=== PATIENT | male | born 1970 | race Caucasian/White ===

== ENCOUNTER 2016-05-19 15:24 | Emergency (ER) | payer BC, MEDICAID ==
[~2016-05-19] VITALS: Ht 170.2 cm; Wt 106.6 kg
[~2016-05-19 15:24] MED LIST: ALBU8.5H3 IH; CALC60OI6 TP; CRESTOR10 MG PO; EPIN0.3A8 IJ; FAMO40TA4 PO; FLUO10TA PO; FLUT16SP2 NS; FURO20TA3 PO; HYDR12.58 PO; HYDR25TA PO; IPRA4AER IH; LISI-338 PO; LORA1TAB PO; METO25TA4 PO; MOME13HF2 IH; MUPI22OI2 TP; NYST1000 PO; OMEG500C3 PO; OMEP40CA5 PO; POTA10TA10 PO; QUET100T4 PO; QUET400T6 PO; QUET50TA5 PO; ROPI1TAB PO; SENN8.6T99 PO; TADA5TAB PO; TEST100V2 IM; TRAM100T PO; TRAM50TA PO
[2016-05-19 15:32] VITALS: BP 116/64
[2016-05-19] MEDS ORDERED: HYDROCODONE/APAP 10/325 TABLET. PO ONE (16:15)
--- NOTE | 2016-06-02 05:51 | ED.ADGEN ---
Past History Past Medical History: Anxiety, Bipolar, CAD, GERD, High Cholesterol, Hypertension Past Surgical History: Appendectomy Smoking: Non-smoker Alcohol Use: None Drug Use: Marijuana Adult General Chief Complaint Chief Complaint electrical burn right index finger HPI HPI Patient went recent surgical repair of right index finger tendon who presents with electrical burn to right index finger. Patient was attempting to reattach a live wire when he felt electrical jolt. Patient with superficial wound to the dorsal aspect of right index finger consistent with electrical burn. No disruption of surgical wound. Sensation intact with no change motor function. Injury occurred just prior to ED arrival. Review of Systems Review of Systems ROS as per HPI. Current Medications Current Medications Current Medications Medications (Trade) Dose Ordered Sig/Miguel A Start Time Stop Time Status Last Admin Dose Admin Acetaminophen/ Hydrocodone Bitart (Lortab 10/325) 1 tab 1X ONCE 05/19/16 16:15 05/19/16 16:17 DC 05/19/16 16:00 1 TAB Allergies Allergies Allergies Coded Allergies Type Severity Reaction Last Updated Verified cinnamon Allergy Severe Anaphylaxis 06/07/13 Yes egg Allergy Severe Anaphylaxis 06/07/13 No latex Allergy Severe Anaphylaxis 06/07/13 Yes Penicillins Adverse Reaction Severe Nausea and Vomiting 06/07/13 No Sulfa (Sulfonamide Antibiotics) Adverse Reaction Severe migraines 06/07/13 Yes codeine Adverse Reaction Severe hyperactive 06/07/13 No Physical Exam Physical Exam Constitutional: Well developed, well nourished, no acute distress, non-toxic appearance. HENT: Normocephalic, atraumatic, bilateral external ears normal, oropharynx moist, no oral exudates, nose normal. Extremities: R index finger, healing surgical scar, superficial wound to dorsum of right distal phalynx systolic electrical burn. Neurologic: Right index finger, sensation intact, limited range of motion. Current Patient Data Vital Signs Vital Signs Date Time Temp Pulse Resp B/P Pulse Ox O2 Delivery O2 Flow Rate FiO2 05/19/16 16:00 12 05/19/16 15:32 98.3 88 96 Room Air EKG EKG [] Radiology/Procedures Radiology/Procedures [] Impressions: electrical burn to to right hand Course & Med Decision Making Course & Med Decision Making Pertinent Labs and Imaging studies reviewed. (See chart for details) [Recommend supportive measures, topical abx and follow up with hand surgeon.] Final Impression Final Impression [1. electrical burn right index finger] Problems: Judy Disclaimer Dragon Disclaimer This electronic medical record was generated, in whole or in part, using a voice recognition dictation system. BREA NEAL DO Jun 02, 2016 05:51
== END 2016-05-19 16:05 | disposition home or self-care (01) ==
LOC: ER 15:24
DX: T23.021A Burn of unspecified degree of single right finger (nail) except thumb, initial encounter (principal); I25.10 Atherosclerotic heart disease of native coronary artery without angina pectoris; I10 Essential (primary) hypertension; E78.00 Pure hypercholesterolemia, unspecified; K21.9 Gastro-esophageal reflux disease without esophagitis; F12.10 Cannabis abuse, uncomplicated; Z88.0 Allergy status to penicillin; Z88.2 Allergy status to sulfonamides; Z88.8 Allergy status to other drugs, medicaments and biological substances; Z88.6 Allergy status to analgesic agent; Z91.012 Allergy to eggs; Z91.040 Latex allergy status; W86.8XXA Exposure to other electric current, initial encounter; Y93.89 Activity, other specified; Y99.8 Other external cause status; Y92.89 Other specified places as the place of occurrence of the external cause
CPT/HCPCS: 16020; 99284-25

== ENCOUNTER 2016-06-28 15:54 | Emergency (ER) | payer BC ==
[2016-06-28] MEDS ORDERED: ACETAMINOPHEN 500 MG TABLET PO ONE (16:45)
[2016-06-28] MEDS ORDERED: CEPHALEXIN 500 MG CAPSULE PO ONE (16:45)
[2016-06-28] MEDS ORDERED: IBUP600T16 PO (16:48)
[2016-06-28] MEDS ORDERED: CEPH-264 PO (16:48)
--- NOTE | 2016-06-28 16:48 | PHYS DOC ---
Past History Past Medical History: Bipolar, CAD, COPD, Diabetes, GERD, Hypertension, [place], TIA , Other Past Surgical History: Appendectomy, Cholecystectomy, Other Smoking: Non-smoker Alcohol Use: None Additional Alcohol Information: no ETOH for 18 years Drug Use: Marijuana Adult General Chief Complaint Chief Complaint: SKIN PROBLEM HPI HPI 45-year-old male who presents with a skin lesion to his right second metatarsal after he states he had significant itching in that area. Patient does have history of diabetic neuropathy and has been itching that toe excessively and now has caused some blister formation and irritation to that area. Patient has skin lesions throughout his body better consistent with pruritic type rash. Patient is on hydroxyzine for itching area. He also believes he has history of psoriasis. He is [id number]. He states he has history of CAD with 4 stents. He denies any recent fever or chills. He is in no acute distress and completely nontoxic in appearance. Pt ambulated into the department without any shoes. Review of Systems Review of Systems Constitutional: Denies fever or chills [] Eyes: Denies change in visual acuity, redness, or eye pain [] HENT: Denies nasal congestion or sore throat [] Respiratory: Denies cough or shortness of breath [] Cardiovascular: No additional information not addressed in HPI [] GI: Denies abdominal pain, nausea, vomiting, bloody stools or diarrhea [] : Denies dysuria or hematuria [] Musculoskeletal: Denies back pain or joint pain [] Integument: Denies rash, has skin lesions [] Neurologic: Denies headache, focal weakness or sensory changes [] Endocrine: Denies polyuria or polydipsia [] Current Medications Current Medications Current Medications Medications (Trade) Dose Ordered Sig/[facility] Start Time Stop Time Status Last Admin Dose Admin Acetaminophen (Tylenol) 1,000 mg 1X ONCE 06/28/16 16:45 06/28/16 16:46 06/28/16 16:33 1,000 MG Cephalexin HCl (Keflex) 500 mg 1X ONCE 06/28/16 16:45 06/28/16 16:46 06/28/16 16:33 500 MG Allergies Allergies Allergies Coded Allergies Type Severity Reaction Last Updated Verified cinnamon Allergy Severe Anaphylaxis 06/07/13 Yes egg Allergy Severe Anaphylaxis 06/07/13 No latex Allergy Severe Anaphylaxis 06/07/13 Yes Penicillins Adverse Reaction Severe Nausea and Vomiting 06/07/13 No Sulfa (Sulfonamide Antibiotics) Adverse Reaction Severe migraines 06/07/13 Yes codeine Adverse Reaction Severe hyperactive 06/07/13 No Physical Exam Physical Exam Constitutional: Well developed, well nourished, no acute distress, non-toxic appearance. [] HENT: Normocephalic, atraumatic, bilateral external ears normal, oropharynx moist, no oral exudates, nose normal. [] Eyes: PERRLA, EOMI, conjunctiva normal, no discharge. [] Neck: Normal range of motion, no tenderness, supple, no stridor. [] Cardiovascular:Heart rate regular rhythm, no murmur [] Lungs & Thorax: Bilateral breath sounds clear to auscultation [] Abdomen: Bowel sounds normal, soft, no tenderness, no masses, no pulsatile masses. [] Skin: Warm, dry, no erythema, no rash. [] Back: No tenderness, no CVA tenderness. [] Extremities: Mild tenderness and an area of blister formation with eschar to the second right metacarpal, there is no obvious cellulitis, there is no fluctuance or purulence noted, no cyanosis, no clubbing, ROM intact, no edema. [ ] Neurologic: Alert and oriented X 3, normal motor function, normal sensory function, no focal deficits noted. [] Psychologic: Affect normal, judgement normal, mood normal. [] Current Patient Data Vital Signs Vital Signs Date Time Temp Pulse Resp B/P Pulse Ox O2 Delivery O2 Flow Rate FiO2 06/28/16 15:54 98.2 80 18 98 Room Air EKG EKG [] Radiology/Procedures Radiology/Procedures [] Course & Med Decision Making Course & Med Decision Making Pertinent Labs and Imaging studies reviewed. (See chart for details) This referral male who has history of diabetes will be given a prescription for Keflex and Tylenol as he has a blistering skin lesion to the right second metatarsal. Counseled him to use topical Benadryl to the area and to avoid itching it at all costs. I also want him to get reevaluated next several days by his primary care doctor and to return if it develops any worsening redness or swelling or pain. Return precautions were provided and acknowledged by the patient. Judy Disclaimer Dragon Disclaimer This chart was dictated in whole or in part using Voice Recognition software in a busy, high-work load, and often noisy Emergency Department environment. It may contain unintended and wholly unrecognized errors or omissions. Departure Departure: Impression: Primary Impression: Skin lesion Disposition: HOME, SELF-CARE Condition: STABLE Referrals: MARIA A MANNING MD (PCP) Patient Instructions: Blisters Additional Instructions: Please take your antibiotic as prescribed. Return to the ER if you develop any worsening of your symptoms. Take tylenol as needed for your pain. Have your wound evaluated in the next 2-3 days. Scripts Cephalexin (Keflex)500 Mg [id number] Mg PO QID 40 Days Prov:CRISTOBAL TOUSSAINT DO 06/28/16 Ibuprofen 600 Mg [id number] Mg PO Q6HRS #20 Prov:CRISTOBAL TOUSSAINT DO 06/28/16 CRISTOBAL TOUSSAINT DO Jun 28, 2016 16:48
[2016-06-28 17:00] VITALS: BP 101/68
== END 2016-06-28 17:00 | disposition home or self-care (01) ==
LOC: ER 15:54
DX: S90.424A Blister (nonthermal), right lesser toe(s), initial encounter (principal); I25.10 Atherosclerotic heart disease of native coronary artery without angina pectoris; I10 Essential (primary) hypertension; F31.9 Bipolar disorder, unspecified; J44.9 Chronic obstructive pulmonary disease, unspecified; E11.9 Type 2 diabetes mellitus without complications; I25.2 Old myocardial infarction; F12.10 Cannabis abuse, uncomplicated; Z86.73 Personal history of transient ischemic attack (TIA), and cerebral infarction without residual deficits; Z91.012 Allergy to eggs; Z91.040 Latex allergy status; Z88.5 Allergy status to narcotic agent; Z88.0 Allergy status to penicillin; Z88.2 Allergy status to sulfonamides; Z91.018 Allergy to other foods; X58.XXXA Exposure to other specified factors, initial encounter; Y93.89 Activity, other specified; Y99.8 Other external cause status; Y92.89 Other specified places as the place of occurrence of the external cause
CPT/HCPCS: 99283

== ENCOUNTER 2016-07-04 19:49 | Emergency (ER) | payer BC ==
[~2016-07-04] VITALS: Ht 170.2 cm; Wt 106.8 kg
[2016-07-04 19:49] VITALS: BP 117/81
[~2016-07-04 19:49] MED LIST changes: +CEPH-264 PO; +IBUP600T16 PO
[2016-07-04 21:16] LABS: BASO % 0 % (0-3); EOS # 0.3 x10^3/uL (0.0-0.7); EOS % 2 % (0-3); HEMATOCRIT 50.9 % (39.0-53.0); HEMOGLOBIN 17.2 g/dL (13.0-17.5); LYMPH # 4.4 x10^3/uL (1.0-4.8); LYMPH % 41 % (24-48); MEAN CORPUSCULAR HEMOGLOBIN 30 pg (25-35); MEAN CORPUSCULAR HGB CONC 34 g/dL (31-37); MEAN CORPUSCULAR VOLUME 89 fL (79-100); MONO # 0.8 x10^3/uL (0.0-1.1); MONO % 7 % (0-9); NEUT # 5.5 x10^3uL (1.8-7.7); NEUT % 50 % (31-73); PLATELET COUNT 359 x10^3/uL (140-400); RED CELL DISTRIBUTION WIDTH 15.4 % (11.5-14.5); WHITE BLOOD COUNT 10.9 x10^3/uL (4.0-11.0)
[2016-07-04 21:27] LABS: C REACTIVE PROTEIN 3.8 mg/L (0-3.3); CALCIUM 8.6 mg/dL (8.5-10.1); GFR 81.2; POTASSIUM 4.1 mmol/L (3.5-5.1)
--- NOTE | 2016-07-04 22:02 | PHYS DOC ---
General Chief Complaint: SKIN PROBLEM Stated Complaint: INFECTION OF FRICTION FULLER Time Seen by MD: 19:52 Source: patient, old records Exam Limitations: no limitations Problems: History of Present Illness Initial Comments Pt is 45/M to ED c/o sores on feet. Pt seen here 06/28 for right 2nd toe "friction blister." Pt rubs his feet together often causing open sores despite being advised against. Pt arrived to ED without shoes. Prescribed cephalexin, pt states not getting better. No fever/chills/malaise/ fatigue. No bump in glucose correlating to infection. Td UTD. Continues to smoke despite being advised to stop. Onset: last week Severity: mild Pain/Injury Location: left foot, right 2nd toe Method of Injury: other Modifying Factors: improves with rest Allergies: Coded Allergies: cinnamon (Verified Allergy, Severe, Anaphylaxis, 06/07/13) egg (Unverified Allergy, Severe, Anaphylaxis, 06/07/13) latex (Verified Allergy, Severe, Anaphylaxis, 06/07/13) Penicillins (Unverified Adverse Reaction, Severe, Nausea and Vomiting, 06/07) Sulfa (Sulfonamide Antibiotics) (Verified Adverse Reaction, Severe, migraines, 06/07/13) codeine (Unverified Adverse Reaction, Severe, hyperactive, 06/07/13) Past Medical History Medical History: other (bipolar, CAD, COPD, DM, GERD, HTN, TIA) Surgical History: other (appy, wade) Family History Significant Family History: no pertinent family hx Social History Smoker: cigarettes Alcohol: sober (x 18 years) Drugs: marijuana Review of Systems Constitutional: denies chills, denies diaphoresis, denies fever, denies malaise Respiratory: denies cough, denies shortness of breath, denies wheezing Cardiovascular: denies chest pain, denies palpitations, denies syncope Gastrointestinal: denies abdominal pain, denies diarrhea, denies nausea, denies vomiting Genitourinary: denies discharge, denies dysuria, denies hematuria Skin: see HPI Psychiatric/Neurological: denies headache, denies weakness Physical Exam General Appearance: no apparent distress (disheveled) Neck: full range of motion, supple Cardiovascular/Respiratory: normal peripheral pulses, no respiratory distress Back: no CVA tenderness, no vertebral tenderness Feet: bilateral foot non-tender, bilateral foot normal range of motion Neurologic/Tendon: normal motor functions, normal tendon functions, responds to pain, no evidence tendon injury, other (decreased sensory b/l feet c/w history) Skin: warm/dry (scabbed small lesions over entire skin surface (pt says house infested with oak mites, bedbugs). Dorsal left 2nd toe scabbed lesion essentially covering dorsal aspect of the digit. Dorsal aspect left foot 1cm x 2cm area of abrasion with 0.5cm halo erythema no induration/purulence/warmth) Orders, Labs, Meds Reassuring labs. I discussed need for outpatient follow up as well as yearly POD visit arranged by PCP. Discussed medication change and smoking cessation. Departure Time of Disposition: 21:58 Disposition: 01 HOME, SELF-CARE Diagnosis: bilateral foot abrasions with diabetic neuropathy Condition: GOOD Patient Instructions: Diabetes and Exercise-SportsMed Additional Instructions: Discontinue cephalexin. Keep wounds clean and dry, cover with sterile dressing. Wash twice daily with soap and warm water, blot dry. Change dressing each wash. Wear diabetic shoes. Rx: cipro, clindamycin Stop smoking, seek medical assistance if necessary. Follow up with your doctor in the next two days for recheck and possible outpatient MRI evaluation.] Return to ED with new or changing symptoms. JOHN BRIGHT DO July 04, 2016 22:02
[2016-07-04] MEDS ORDERED: CLINDAMYCIN HCL 150 MG CAPSULE PO ONE (22:15)
[2016-07-04] MEDS ORDERED: CIPROFLOXACIN HCL 500 MG TABLET PO ONE (22:15)
== END 2016-07-04 22:18 | disposition home or self-care (01) ==
LOC: ER 19:49
DX: S90.812A Abrasion, left foot, initial encounter (principal); S90.811A Abrasion, right foot, initial encounter; E11.40 Type 2 diabetes mellitus with diabetic neuropathy, unspecified; F17.210 Nicotine dependence, cigarettes, uncomplicated; F31.9 Bipolar disorder, unspecified; I25.10 Atherosclerotic heart disease of native coronary artery without angina pectoris; K21.9 Gastro-esophageal reflux disease without esophagitis; J44.9 Chronic obstructive pulmonary disease, unspecified; I10 Essential (primary) hypertension; F12.10 Cannabis abuse, uncomplicated; Z86.73 Personal history of transient ischemic attack (TIA), and cerebral infarction without residual deficits; Z88.5 Allergy status to narcotic agent; Z88.2 Allergy status to sulfonamides; Z88.0 Allergy status to penicillin; Z91.012 Allergy to eggs; Z91.040 Latex allergy status; Z91.018 Allergy to other foods; X58.XXXA Exposure to other specified factors, initial encounter; Y93.89 Activity, other specified; Y92.89 Other specified places as the place of occurrence of the external cause; Y99.8 Other external cause status
CPT/HCPCS: 36415; 80048; 85027; 86140; 87040; 99284

== ENCOUNTER 2016-07-12 00:14 | Emergency (ER) | payer BC ==
[~2016-07-12] VITALS: Ht 170.2 cm; Wt 106.8 kg
[2016-07-12 00:14] VITALS: BP 117/81
[~2016-07-12 00:14] MED LIST changes: -ALBU8.5H3 IH; +ALBU8.5H8 IH
--- NOTE | 2016-07-12 03:07 | ED.ADGEN ---
Past History Past Medical History: Bipolar, CAD, COPD, Diabetes, GERD, Hypertension, [place], TIA , Vascular Disease, Other Past Surgical History: Appendectomy, Cholecystectomy, Other Smoking: Non-smoker Alcohol Use: None Drug Use: Marijuana Adult General Chief Complaint Chief Complaint Dental issue HPI HPI Patient is a 45 year old male who presents with lying stuck in his tooth. Review of Systems Review of Systems Constitutional: Denies fever or chills [] Eyes: Denies change in visual acuity, redness, or eye pain [] HENT: Denies nasal congestion or sore throat [] Respiratory: Denies cough or shortness of breath [] Cardiovascular: No additional information not addressed in HPI [] GI: Denies abdominal pain, nausea, vomiting, bloody stools or diarrhea [] : Denies dysuria or hematuria [] Musculoskeletal: Denies back pain or joint pain [] Integument: Denies rash or skin lesions [] Neurologic: Denies headache, focal weakness or sensory changes [] Endocrine: Denies polyuria or polydipsia [] Allergies Allergies Allergies Coded Allergies Type Severity Reaction Last Updated Verified cinnamon Allergy Severe Anaphylaxis 06/07/13 Yes egg Allergy Severe Anaphylaxis 06/07/13 No latex Allergy Severe Anaphylaxis 06/07/13 Yes Penicillins Adverse Reaction Severe Nausea and Vomiting 06/07/13 No Sulfa (Sulfonamide Antibiotics) Adverse Reaction Severe migraines 06/07/13 Yes codeine Adverse Reaction Severe hyperactive 06/07/13 No Physical Exam Physical Exam Constitutional: Well developed, well nourished, no acute distress, non-toxic appearance. [] HENT: Normocephalic, atraumatic, bilateral external ears normal, oropharynx moist, no oral exudates, nose normal. Tongue ring stud stuck inbetween the seventh and eighth tooth Eyes: PERRLA, EOMI, conjunctiva normal, no discharge. [] Neck: Normal range of motion, no tenderness, supple, no stridor. [] Cardiovascular:Heart rate regular rhythm, no murmur [] Lungs & Thorax: Bilateral breath sounds clear to auscultation [] Abdomen: Bowel sounds normal, soft, no tenderness, no masses, no pulsatile masses. [] Skin: Warm, dry, no erythema, no rash. [] Back: No tenderness, no CVA tenderness. [] Extremities: No tenderness, no cyanosis, no clubbing, ROM intact, no edema. [] Neurologic: Alert and oriented X 3, normal motor function, normal sensory function, no focal deficits noted. [] Psychologic: Affect normal, judgement normal, mood normal. [] EKG EKG [] Radiology/Procedures Radiology/Procedures [] Course & Med Decision Making Course & Med Decision Making Pertinent Labs and Imaging studies reviewed. (See chart for details) I was able to dislodge the tongue ring in his tooth and the patient feels better now. He denies any pain, trouble swallowing or breathing. He is being discharged home with return precautions that if you have troubles breathing or swallowing or other concerns return back to ER. Final Impression Final Impression Tongue ring stuck in tooth Problems: Dragon Disclaimer Dragon Disclaimer This electronic medical record was generated, in whole or in part, using a voice recognition dictation system. ERNIE RODRIGUEZ MD July 12, 2016 03:06
== END 2016-07-12 00:40 | disposition home or self-care (01) ==
LOC: ER 00:14
DX: T18.0XXA Foreign body in mouth, initial encounter (principal); I25.10 Atherosclerotic heart disease of native coronary artery without angina pectoris; E11.9 Type 2 diabetes mellitus without complications; I10 Essential (primary) hypertension; J44.9 Chronic obstructive pulmonary disease, unspecified; K21.9 Gastro-esophageal reflux disease without esophagitis; Z86.73 Personal history of transient ischemic attack (TIA), and cerebral infarction without residual deficits; I25.2 Old myocardial infarction; F12.10 Cannabis abuse, uncomplicated; Z88.5 Allergy status to narcotic agent; Z88.0 Allergy status to penicillin; Z88.2 Allergy status to sulfonamides; Z88.8 Allergy status to other drugs, medicaments and biological substances; Z91.012 Allergy to eggs; Z91.040 Latex allergy status; X58.XXXA Exposure to other specified factors, initial encounter; Y93.89 Activity, other specified; Y99.8 Other external cause status; Y92.89 Other specified places as the place of occurrence of the external cause
CPT/HCPCS: 99284

== ENCOUNTER 2016-09-11 11:05 | Emergency (ER) | payer SELFPAY ==
[~2016-09-11] VITALS: Ht 170.2 cm; Wt 106.8 kg
[2016-09-11 11:16] VITALS: BP 123/80
--- NOTE | 2016-09-11 11:25 | ED.ADGEN ---
Past History Past Medical History: Bipolar, CAD, COPD, Diabetes, GERD, Hypertension, [place], TIA , Vascular Disease, Other Past Surgical History: Appendectomy, Cholecystectomy, Other Smoking: Non-smoker Alcohol Use: None Drug Use: Marijuana Adult General Chief Complaint Chief Complaint Hand trauma HPI HPI Patient is a 46 year old and male who presents with injury. He states he was using a cocking mechanism on his bow when it shattered in the string him in the left hand. He presents with a bruise over his left hand and a small laceration over the lateral aspect of his right hand on the palm surface. He denies any numbness tingling or weakness in his hand. He states his last tetanus shot was 2 years ago. Review of Systems Review of Systems Constitutional: Denies fever or chills [] Eyes: Denies change in visual acuity, redness, or eye pain [] HENT: Denies nasal congestion or sore throat [] Respiratory: Denies cough or shortness of breath [] Cardiovascular: No additional information not addressed in HPI [] GI: Denies abdominal pain, nausea, vomiting, bloody stools or diarrhea [] : Denies dysuria or hematuria [] Musculoskeletal: Denies back pain or joint pain [] Integument: Denies rash or skin lesions [] Neurologic: Denies headache, focal weakness or sensory changes [] Endocrine: Denies polyuria or polydipsia [] Current Medications Current Medications Current Medications Medications (Trade) Dose Ordered Sig/[facility] Start Time Stop Time Status Last Admin Dose Admin Acetaminophen/ Hydrocodone Bitart (Lortab 5/325) 2 tab 1X ONCE 09/11/16 12:30 09/11/16 12:30 DC 09/11/16 12:21 2 TAB Allergies Allergies Allergies Coded Allergies Type Severity Reaction Last Updated Verified cinnamon Allergy Severe Anaphylaxis 06/07/13 Yes egg Allergy Severe Anaphylaxis 06/07/13 No latex Allergy Severe Anaphylaxis 06/07/13 Yes Penicillins Adverse Reaction Severe Nausea and Vomiting 06/07/13 No Sulfa (Sulfonamide Antibiotics) Adverse Reaction Severe migraines 06/07/13 Yes codeine Adverse Reaction Severe hyperactive 06/07/13 No Physical Exam Physical Exam Constitutional: Well developed, well nourished, no acute distress, non-toxic appearance. [] HENT: Normocephalic, atraumatic, bilateral external ears normal, oropharynx moist, no oral exudates, nose normal. [] Eyes: PERRLA, EOMI, conjunctiva normal, no discharge. [] Neck: Normal range of motion, no tenderness, supple, no stridor. [] Cardiovascular:Heart rate regular rhythm, no murmur [] Lungs & Thorax: Bilateral breath sounds clear to auscultation [] Abdomen: Bowel sounds normal, soft, no tenderness, no masses, no pulsatile masses. [] Skin: Warm, dry, no erythema, no rash. [] Back: No tenderness, no CVA tenderness. [] Extremities: Tender to palpation over the palmar aspect of the proximal hand with ecchymosis and of 1-2 cm area over the medial aspect of the palmar surface of the proximal home with a 1 cm small laceration and hematoma over the lateral proximal palmar surface is approximately 5 mm x 1 cm in size, no cyanosis, no clubbing, ROM intact, no edema. Station intact to light touch to radial ulnar and median nerve distributions with motor intact to the same. Able to flex and extend at PIP, DIP joint, able to oppose and abduct and adduct the thumb. Neurologic: Alert and oriented X 3, normal motor function, normal sensory function, no focal deficits noted. [] Psychologic: Affect normal, judgement normal, mood normal. [] Current Patient Data Vital Signs Vital Signs Date Time Temp Pulse Resp B/P (MAP) Pulse Ox O2 Delivery O2 Flow Rate FiO2 09/11/16 12:21 20 98 Room Air 09/11/16 11:16 97.6 77 EKG EKG [] Radiology/Procedures Radiology/Procedures [] Course & Med Decision Making Course & Med Decision Making Pertinent Labs and Imaging studies reviewed. (See chart for details) My reading the x-rays do not show any abnormality's. He is tender to palpation in the snuffbox. We'll put in a thumb spica and have repeat x-rays in 10-14 days. He has a superficial laceration that is not need to be repaired. Triple anabolic on it was applied with gauze. Being discharged with [place] 5/325 one to 2 every 6 hours 20 tabs. He also being offered orthopedic follow-up. Return precautions given. He is agreeable plan and being discharged in stable condition this time. He's also instructed to apply ice to his wound for the next 24 hours for the contusion part. After the splint was applied I personally checked it he has good cap refill and sensation intact. Final Impression Final Impression Thumb pain Hand contusion Problems: Dragon Disclaimer Dragon Disclaimer This electronic medical record was generated, in whole or in part, using a voice recognition dictation system. ERNIE RODRIGUEZ MD Sep 11, 2016 11:24
[2016-09-11] MEDS ORDERED: HYDR-971 PO (12:14)
[2016-09-11] MEDS ORDERED: HYDROcodone/APAP 5/325MG 1 TAB TABLET PO ONE (12:30)
--- NOTE | 2016-09-11 13:02 | RAD ---
Left hand radiograph 09/11/2016 at 1149 hours Indication: Left hand trauma with open wounds around the first metacarpal on palmar surface radiating towards the radius and ulna. Comparison: Left hand radiograph 01/14/2014 Technique: 3 views of the left hand are provided. Findings: There is no acute fracture or dislocation. Mild soft tissue swelling is identified along the palmar aspect of the hand. There is a punctate radiopaque density in the palmar soft tissues of the second digit which appears stable dating back to 01/14/2014. No soft tissue gas or osseous erosion. Impression: No acute fracture or dislocation. Soft tissue swelling along the palmar aspect of the hand. No new radiopaque foreign density.
== END 2016-09-11 12:21 | disposition home or self-care (01) ==
LOC: ER 11:05
DX: S61.412A Laceration without foreign body of left hand, initial encounter (principal); I25.10 Atherosclerotic heart disease of native coronary artery without angina pectoris; E11.9 Type 2 diabetes mellitus without complications; I10 Essential (primary) hypertension; J44.9 Chronic obstructive pulmonary disease, unspecified; K21.9 Gastro-esophageal reflux disease without esophagitis; F12.10 Cannabis abuse, uncomplicated; Z86.73 Personal history of transient ischemic attack (TIA), and cerebral infarction without residual deficits; Z91.012 Allergy to eggs; Z91.040 Latex allergy status; Z88.5 Allergy status to narcotic agent; Z88.0 Allergy status to penicillin; Z88.2 Allergy status to sulfonamides; Z91.018 Allergy to other foods; X58.XXXA Exposure to other specified factors, initial encounter; Y93.89 Activity, other specified; Y99.8 Other external cause status; Y92.89 Other specified places as the place of occurrence of the external cause
CPT/HCPCS: 29125; 73130; 99284-25

== ENCOUNTER 2016-09-18 12:39 | Emergency (ER) | payer SELFPAY ==
[~2016-09-18 12:39] MED LIST changes: +HYDR-971 PO
[2016-09-18] MEDS ORDERED: ONDANSETRON PF 4 MG/2 ML VIAL. IV PRN (13:15)
[2016-09-18] MEDS ORDERED: IV NORMAL SALINE 1,000ML 1,000 ML IV SCH (13:30)
[2016-09-18 13:40] LABS: BASO # 0.1 x10^3/uL (0.0-0.2); BASO % 1 % (0-3); EOS # 0.1 x10^3/uL (0.0-0.7); EOS % 1 % (0-3); HEMATOCRIT 48.1 % (39.0-53.0); HEMOGLOBIN 16.5 g/dL (13.0-17.5); LYMPH # 3.3 x10^3/uL (1.0-4.8); LYMPH % 27 % (24-48); MEAN CORPUSCULAR HEMOGLOBIN 31 pg (25-35); MEAN CORPUSCULAR HGB CONC 34 g/dL (31-37); MEAN CORPUSCULAR VOLUME 90 fL (79-100); MONO # 0.7 x10^3/uL (0.0-1.1); MONO % 6 % (0-9); NEUT # 8.1 x10^3uL (1.8-7.7); NEUT % 66 % (31-73); PLATELET COUNT 374 x10^3/uL (140-400); RED BLOOD COUNT 5.32 x10^6/uL (4.30-5.70); RED CELL DISTRIBUTION WIDTH 14.2 % (11.5-14.5); WHITE BLOOD COUNT 12.4 x10^3/uL (4.0-11.0)
[2016-09-18 13:52] LABS: ALBUMIN 4.1 g/dL (3.4-5.0); ALBUMIN/GLOBULIN RATIO 0.9 (1.0-1.7); CALCIUM 8.9 mg/dL (8.5-10.1); CREATININE 1.2 mg/dL (0.7-1.3); GFR 65.5; POTASSIUM 4.1 mmol/L (3.5-5.1); TOTAL BILIRUBIN 0.7 mg/dL (0.2-1.0); TOTAL PROTEIN 8.5 g/dL (6.4-8.2)
[2016-09-18] MEDS ORDERED: METOCLOPRAMIDE HCL 10 MG/2 ML VIAL. IV ONE (14:30)
[2016-09-18] MEDS ORDERED: ONDA4TAB10 SL (15:59)
--- NOTE | 2016-09-18 16:00 | PHYS DOC ---
Past History Past Medical History: Bipolar, CAD, COPD, Depression, Diabetes, GERD, High Cholesterol, Hypertension, MD, P.U.D, TIA, Vascular Disease, Other Past Surgical History: Appendectomy, Cholecystectomy, Other Smoking: Non-smoker Alcohol Use: Occasionally Additional Alcohol Information: history of ETOH abuse Drug Use: Marijuana Adult General Chief Complaint Chief Complaint: ABDOMINAL PAIN HPI HPI Patient is a 46 year old M who presents with nausea/vomiting and abdominal pain. States this is a dull epigastric pain that is worse with eating and improved when he is not eating. He also notes moderate watery diarrhea. He was discharged from [place] on September 10 and seen again in the emergency room on September 16 for the same issue. He was diagnosed with [place]'s disease during his admission and has been taking the oral steroids prescribed to him at that time. He has not been taking the Reglan that was prescribed for his recently diagnosed gastroparesis due to cost and interactions with his psychiatric medications. He has since discontinued one of his psychiatric medications per pharmacy recommendation in order to fill the Reglan. He does not have any other associated symptoms or concerns at this time Review of Systems Review of Systems Constitutional: Denies fever or chills [] Eyes: Denies change in visual acuity, redness, or eye pain [] HENT: Denies nasal congestion or sore throat [] Respiratory: Denies cough or shortness of breath [] Cardiovascular: No additional information not addressed in HPI [] GI: Neg except for HPI : Denies dysuria or hematuria [] Musculoskeletal: Denies back pain or joint pain [] Integument: Denies rash or skin lesions [] Neurologic: Denies headache, focal weakness or sensory changes [] Endocrine: Denies polyuria or polydipsia [] Family History Family History reviewed Current Medications Current Medications Current Medications Medications (Trade) Dose Ordered Sig/Miguel A Start Time Stop Time Status Last Admin Dose Admin Metoclopramide HCl (Reglan) 5 mg 1X ONCE 09/18/16 14:30 09/18/16 14:31 DC 09/18/16 14:12 5 MG Ondansetron HCl (Zofran) 4 mg PRN Q6HRS PRN 09/18/16 13:15 09/18/16 13:40 4 MG Sodium Chloride 1,000 ml @ 1,000 mls/hr Q1H 09/18/16 13:30 09/18/16 14:29 DC 09/18/16 13:40 1,000 MLS/HR Allergies Allergies Coded Allergies Type Severity Reaction Last Updated Verified cinnamon Allergy Severe Anaphylaxis 06/07/13 Yes egg Allergy Severe Anaphylaxis 06/07/13 No latex Allergy Severe Anaphylaxis 06/07/13 Yes Penicillins Adverse Reaction Severe Nausea and Vomiting 06/07/13 No Sulfa (Sulfonamide Antibiotics) Adverse Reaction Severe migraines 06/07/13 Yes codeine Adverse Reaction Severe hyperactive 06/07/13 No Physical Exam Physical Exam Constitutional: Well developed, well nourished, no acute distress, non-toxic appearance. [] HENT: Normocephalic, atraumatic, bilateral external ears normal, oropharynx moist, no oral exudates, nose normal. [] Eyes: PERRLA, EOMI, conjunctiva normal, no discharge. [] Neck: Normal range of motion, no tenderness, supple, no stridor. [] Cardiovascular:Heart rate regular rhythm, no murmur [] Lungs & Thorax: Bilateral breath sounds clear to auscultation [] Abdomen: Bowel sounds normal, soft, no masses, no pulsatile masses. Mild defuse TTP, worse of the epigastric region Skin: Warm, dry, no erythema, no rash. [] Back: No tenderness, no CVA tenderness. [] Extremities: No tenderness, no cyanosis, no clubbing, ROM intact, no edema. [] Neurologic: Alert and oriented X 3, normal motor function, normal sensory function, no focal deficits noted. [] Psychologic: Affect normal, judgement normal, mood normal. [] Current Patient Data Vital Signs Vital Signs Date Time Temp Pulse Resp B/P (MAP) Pulse Ox O2 Delivery O2 Flow Rate FiO2 09/18/16 14:13 76 18 98 Room Air 09/18/16 12:39 98.4 Lab Results Laboratory Tests Test 09/18/16 13:27 White Blood Count 12.4 x10^3/uL (4.0-11.0) H Red Blood Count 5.32 x10^6/uL (4.30-5.70) Hemoglobin 16.5 g/dL (13.0-17.5) Hematocrit 48.1 % (39.0-53.0) Mean Corpuscular Volume 90 fL (79-100) Mean Corpuscular Hemoglobin 31 pg (25-35) Mean Corpuscular Hemoglobin Concent 34 g/dL (31-37) Red Cell Distribution Width 14.2 % (11.5-14.5) Platelet Count 374 x10^3/uL (140-400) Neutrophils (%) (Auto) 66 % (31-73) Lymphocytes (%) (Auto) 27 % (24-48) Monocytes (%) (Auto) 6 % (0-9) Eosinophils (%) (Auto) 1 % (0-3) Basophils (%) (Auto) 1 % (0-3) Neutrophils # (Auto) 8.1 x10^3uL (1.8-7.7) H Lymphocytes # (Auto) 3.3 x10^3/uL (1.0-4.8) Monocytes # (Auto) 0.7 x10^3/uL (0.0-1.1) Eosinophils # (Auto) 0.1 x10^3/uL (0.0-0.7) Basophils # (Auto) 0.1 x10^3/uL (0.0-0.2) Sodium Level 138 mmol/L (136-145) Potassium Level 4.1 mmol/L (3.5-5.1) Chloride Level 100 mmol/L (98-107) Carbon Dioxide Level 29 mmol/L (21-32) Anion Gap 9 (6-14) Blood Urea Nitrogen 10 mg/dL (8-26) Creatinine 1.2 mg/dL (0.7-1.3) Estimated GFR (Cockcroft-Gault) 65.5 BUN/Creatinine Ratio 8 (6-20) Glucose Level 105 mg/dL (70-99) H Calcium Level 8.9 mg/dL (8.5-10.1) Total Bilirubin 0.7 mg/dL (0.2-1.0) Aspartate Amino Transferase (AST) 37 U/L (15-37) Alanine Aminotransferase (ALT) 56 U/L (16-63) Alkaline Phosphatase 155 U/L (46-116) H Total Protein 8.5 g/dL (6.4-8.2) H Albumin 4.1 g/dL (3.4-5.0) Albumin/Globulin Ratio 0.9 (1.0-1.7) L Lipase 113 U/L (73-393) Course & Med Decision Making Course & Med Decision Making Pertinent Labs and Imaging studies reviewed. (See chart for details) K[facility] was reviewed and he was found to have 15 different prescribers. He did not vomit in the ED and was found to have normal labs. He declined imaging at this time. Dragon Disclaimer Dragon Disclaimer This chart was dictated in whole or in part using Voice Recognition software in a busy, high-work load, and often noisy Emergency Department environment. It may contain unintended and wholly unrecognized errors or omissions. Departure Departure: Impression: Primary Impression: Gastroenteritis Disposition: HOME, SELF-CARE Condition: STABLE Referrals: [facility] (PCP) Patient Instructions: Viral Gastroenteritis Additional Instructions: Juan was seen in the ED for abdominal pain with vomiting. No emergency medical condition was found during the history and physical exam. He did have normal labs. He did receive IV fluids and was given a script for Zofran. He was advised to follow up with his primary care doctor as soon as possible for further evaluation Scripts Ondansetron (ZOFRAN ODT) 4 Mg Tab.rapdis 1 TAB SL Q8HRS, #10 TAB Prov: LUZ MARINA TYSON MD 09/18/16 LUZ MARINA TYSON MD Sep 18, 2016 16:00
[2016-09-18 16:05] VITALS: BP 131/66
== END 2016-09-18 16:05 | disposition home or self-care (01) ==
LOC: ER 12:39
DX: K52.9 Noninfective gastroenteritis and colitis, unspecified (principal); E11.9 Type 2 diabetes mellitus without complications; E78.00 Pure hypercholesterolemia, unspecified; I25.10 Atherosclerotic heart disease of native coronary artery without angina pectoris; I10 Essential (primary) hypertension; J44.9 Chronic obstructive pulmonary disease, unspecified; K21.9 Gastro-esophageal reflux disease without esophagitis; Z86.73 Personal history of transient ischemic attack (TIA), and cerebral infarction without residual deficits; I25.2 Old myocardial infarction; Z87.11 Personal history of peptic ulcer disease; F10.10 Alcohol abuse, uncomplicated; F12.10 Cannabis abuse, uncomplicated; Z91.012 Allergy to eggs; Z91.040 Latex allergy status; Z88.5 Allergy status to narcotic agent; Z88.0 Allergy status to penicillin; Z88.2 Allergy status to sulfonamides; Z91.018 Allergy to other foods
CPT/HCPCS: 36415; 80053; 83690; 85027; 96361; 96374; 96375; 99285; J2405; J2765; J7030

== ENCOUNTER 2017-01-01 19:05 | Inpatient (IN) | payer SELFPAY ==
[~2017-01-01] VITALS: Ht 170.2 cm; Wt 96.9 kg
[~2017-01-01 19:05] MED LIST changes: +ONDA4TAB10 SL
[2017-01-01] MEDS ORDERED: NITROGLYCERIN SUBLINGUAL 0.4 MG BOTTLE OF 25. SL PRN ×2 (19:15→23:00)
--- NOTE | 2017-01-01 19:39 | EKG ---
[address] [address] Test Date: 2017-01-01 Test Time: 19:16:20 Pat Name: HEATHER REESE Department: Room: Gender: M [employer]: SHELLY : 1970 Requested By: NAVARRO LAI Order Number: [id number] Reading MD: Bruno Henriquez MD Measurements Intervals [place] Rate: 105 P: 5 AK: 158 QRS: 64 QRSD: 82 T: 20 QT: 318 QTc: 424 Interpretive Statements SINUS TACHYCARDIA Electronically Signed On 01-05-2017 13:32:29 CDT by Bruno Henriquez MD
[2017-01-01 20:05] LABS: BASO # 0.1 x10^3/uL (0.0-0.2); BASO % 1 % (0-3); EOS # 0.1 x10^3/uL (0.0-0.7); EOS % 1 % (0-3); HEMATOCRIT 50.6 % (39.0-53.0); HEMOGLOBIN 17.8 g/dL (13.0-17.5); LYMPH # 3.8 x10^3/uL (1.0-4.8); LYMPH % 28 % (24-48); MEAN CORPUSCULAR HEMOGLOBIN 32 pg (25-35); MEAN CORPUSCULAR HGB CONC 35 g/dL (31-37); MEAN CORPUSCULAR VOLUME 92 fL (79-100); MONO # 0.8 x10^3/uL (0.0-1.1); MONO % 6 % (0-9); NEUT # 8.9 x10^3uL (1.8-7.7); NEUT % 65 % (31-73); PLATELET COUNT 309 x10^3/uL (140-400); RED BLOOD COUNT 5.53 x10^6/uL (4.30-5.70); RED CELL DISTRIBUTION WIDTH 13.4 % (11.5-14.5); WHITE BLOOD COUNT 13.8 x10^3/uL (4.0-11.0)
[2017-01-01 20:21] LABS: ALBUMIN 3.7 g/dL (3.4-5.0); CALCIUM 8.9 mg/dL (8.5-10.1); GFR 80.8; TOTAL BILIRUBIN 0.5 mg/dL (0.2-1.0); TOTAL PROTEIN 7.5 g/dL (6.4-8.2)
[2017-01-01 20:30] LABS: POTASSIUM 3.1 mmol/L (3.5-5.1)
[2017-01-01] MEDS ORDERED: POTASSIUM CHLORIDE 20 MEQ/15 ML ORAL LIQUID. PO ONE (20:45)
--- NOTE | 2017-01-01 20:52 | ED.ADGEN ---
Past History Past Medical History: CAD, Other Past Surgical History: Other Smoking: Non-smoker Alcohol Use: None Drug Use: None Adult General HPI HPI Patient is a 46-year-old man, history of CAD status post stent placement, [place] disease, who states he's been noncompliant with his cardiac medications for between one to 6 months, although he has been taking his steroids for his [place] disease without issue, who presents emergency Department with complaint of chest pain, shortness of breath, that began around 5:00 this afternoon. Patient states that he initially that this is due to his asthma disease, he states that he's had previous episodes of flares from his gastroparesis, however the pain was more persistent and in his upper left chest as well, prompting him to call EMS. Patient received aspirin and nitroglycerin from EMS, and upon arrival to the emergency department states that his pain is almost fully resolved. He denies any recent travel or surgery, states that he has mild swelling extremities that is unchanged from usual, denies any fevers complains of occasional chills, denies any focal weakness, numbness, tingling, headache, states he does have 2 episodes of nausea and vomiting today, food and fluid, and one episode of loose brown stool. He states he did have [facility], did not take up extremity . He is supposed to be on anticoagulants , but has not been taking it for some time due to running out. He states that he did not have medications refilled because he cannot afford his medications. His internet merchant is Dr. Block. Review of Systems Review of Systems Constitutional: Denies fever or chills [] Eyes: Denies change in visual acuity, redness, or eye pain [] HENT: Denies nasal congestion or sore throat [] Respiratory: Denies cough or shortness of breath [] Cardiovascular: No additional information not addressed in HPI [] GI: Denies abdominal pain, nausea, vomiting, bloody stools or diarrhea [] : Denies dysuria or hematuria [] Musculoskeletal: Denies back pain or joint pain [] Integument: Denies rash or skin lesions [] Neurologic: Denies headache, focal weakness or sensory changes [] Endocrine: Denies polyuria or polydipsia [] Current Medications Current Medications Current Medications Medications (Trade) Dose Ordered Sig/Miguel A Start Time Stop Time Status Last Admin Dose Admin Acetaminophen (Tylenol) 650 mg PRN Q4HRS PRN 01/01/17 23:00 01/02/17 22:59 Fentanyl Citrate (Fentanyl 2ml Vial) 100 mcg STK-MED ONCE 01/01/17 21:27 01/01/17 21:28 DC Nitroglycerin (Nitrostat) 0.4 mg PRN Q5MIN PRN 01/01/17 23:00 01/02/17 22:59 Ondansetron HCl (Zofran) 4 mg PRN Q4HRS PRN 01/01/17 23:00 01/02/17 22:59 Potassium Chloride (KCl Oral Soln) 20 meq STK-MED ONCE 01/01/17 21:29 01/01/17 21:30 DC Allergies Allergies Allergies Coded Allergies Type Severity Reaction Last Updated Verified cinnamon Allergy Severe Anaphylaxis 06/07/13 Yes egg Allergy Severe Anaphylaxis 06/07/13 No latex Allergy Severe Anaphylaxis 06/07/13 Yes Penicillins Adverse Reaction Severe Nausea and Vomiting 06/07/13 No Sulfa (Sulfonamide Antibiotics) Adverse Reaction Severe migraines 06/07/13 Yes codeine Adverse Reaction Severe hyperactive 06/07/13 No Physical Exam Physical Exam Constitutional: Well developed, well nourished, no acute distress, non-toxic appearance. [] HENT: Normocephalic, atraumatic, bilateral external ears normal, oropharynx moist, no oral exudates, nose normal. [] Eyes: PERRLA, EOMI, conjunctiva normal, no discharge. [] Neck: Normal range of motion, no tenderness, supple, no stridor. [] Cardiovascular:Heart rate regular rhythm, no murmur [] Lungs & Thorax: Bilateral breath sounds clear to auscultation [] Abdomen: Bowel sounds normal, soft, no tenderness, no masses, no pulsatile masses. [] Skin: Warm, dry, no erythema, no rash. [] Back: No tenderness, no CVA tenderness. [] Extremities: No tenderness, no cyanosis, no clubbing, ROM intact, no edema. [] Neurologic: Alert and oriented X 3, normal motor function, normal sensory function, no focal deficits noted. [] Psychologic: Affect normal, judgement normal, mood normal. [] Current Patient Data Vital Signs Vital Signs Date Time Temp Pulse Resp B/P (MAP) Pulse Ox O2 Delivery O2 Flow Rate FiO2 01/01/17 21:40 20 97 Room Air 01/01/17 19:16 98.5 110 Lab Results Laboratory Tests Test 01/01/17 19:45 White Blood Count 13.8 x10^3/uL (4.0-11.0) H Red Blood Count 5.53 x10^6/uL (4.30-5.70) Hemoglobin 17.8 g/dL (13.0-17.5) H Hematocrit 50.6 % (39.0-53.0) Mean Corpuscular Volume 92 fL (79-100) Mean Corpuscular Hemoglobin 32 pg (25-35) Mean Corpuscular Hemoglobin Concent 35 g/dL (31-37) Red Cell Distribution Width 13.4 % (11.5-14.5) Platelet Count 309 x10^3/uL (140-400) Neutrophils (%) (Auto) 65 % (31-73) Lymphocytes (%) (Auto) 28 % (24-48) Monocytes (%) (Auto) 6 % (0-9) Eosinophils (%) (Auto) 1 % (0-3) Basophils (%) (Auto) 1 % (0-3) Neutrophils # (Auto) 8.9 x10^3uL (1.8-7.7) H Lymphocytes # (Auto) 3.8 x10^3/uL (1.0-4.8) Monocytes # (Auto) 0.8 x10^3/uL (0.0-1.1) Eosinophils # (Auto) 0.1 x10^3/uL (0.0-0.7) Basophils # (Auto) 0.1 x10^3/uL (0.0-0.2) Sodium Level 135 mmol/L (136-145) L Potassium Level 3.1 mmol/L (3.5-5.1) L Chloride Level 100 mmol/L (98-107) Carbon Dioxide Level 26 mmol/L (21-32) Anion Gap 9 (6-14) Blood Urea Nitrogen 14 mg/dL (8-26) Creatinine 1.0 mg/dL (0.7-1.3) Estimated GFR (Cockcroft-Gault) 80.8 BUN/Creatinine Ratio 14 (6-20) Glucose Level 113 mg/dL (70-99) H Calcium Level 8.9 mg/dL (8.5-10.1) Magnesium Level 2.4 mg/dL (1.8-2.4) Total Bilirubin 0.5 mg/dL (0.2-1.0) Aspartate Amino Transferase (AST) 30 U/L (15-37) Alanine Aminotransferase (ALT) 67 U/L (16-63) H Alkaline Phosphatase 154 U/L (46-116) H Troponin I Quantitative < 0.017 ng/mL (0-0.055) EH-Dtm-H-Type Natriuretic Peptide 20 pg/mL (0-124) Total Protein 7.5 g/dL (6.4-8.2) Albumin 3.7 g/dL (3.4-5.0) Albumin/Globulin Ratio 1.0 (1.0-1.7) Lipase 200 U/L (73-393) EKG EKG EC: Sinus tachycardia, heart rate 105 beats/minute, contour abnormality is noted in the anterior lateral leads, QTc of 424, FL 158, QRS of 82, no ST elevations or depressions, abnormal ECG, does not meet STEMI criteria. As interpreted by me. Radiology/Procedures Radiology/Procedures Chest x-ray: One view: Normal cardiopulmonary silhouette, patient is slightly rotated, no infiltrates, no effusions, pneumothorax, no soft tissue or bony abnormalities identified. As interpreted by me.[] Course & Med Decision Making Course & Med Decision Making Pertinent Labs and Imaging studies reviewed. (See chart for details) Patient resting comfortably after receiving aspirin and nitroglycerin en route to the ED. Laboratory studies obtained, troponin within normal limits, ECG reveals mild tachycardia, no evidence of acute ischemia. Chest x-rays unremarkable. Patient noted to have hypokalemia with potassium of 3.1, was repleted orally in the ED. No other concerning abnormalities identified. Patient 's blood pressure within normal limits, heart rate is now in the 80s and 90s.I did discuss findings as above with Dr. Block, the patient's internet merchant, including the patient's medical noncompliance, he requests the patient be admitted to [facility] for serial enzymes continued monitoring, states he will follow the patient in the morning. No indications for catheterization or other interventions at this time. I did discuss this with patient, he is agreeable plan for admission to [facility] for serial laboratory studies, monitoring, and cardiology evaluation. He continues to rest comfortably at this time. No further emesis, patient has injured Nitropaste on his chest. I did discuss findings as above with Dr. Nicole, hospitalist on-call, patient was accepted to her service as a full admission to the medical telemetry floor with cardiology consultation as stated, bridge orders entered per discussion. Patient remained stable, comfortable in the emergency department, awaiting transfer to the floor. Final Impression Final Impression [] Problems: Dragon Disclaimer Dragon Disclaimer This electronic medical record was generated, in whole or in part, using a voice recognition dictation system. Departure: Impression: Primary Impression: Chest pain Disposition: ADMITTED INPATIENT Condition: IMPROVED NAVARRO LAI DO Jan 01, 2017 20:52
[2017-01-01] MEDS ORDERED: POTASSIUM CHLORIDE 20 MEQ/15 ML ORAL LIQUID. ONE (21:29)
[2017-01-01] MEDS ORDERED: ONDANSETRON PF 4 MG/2 ML VIAL. IV PRN (23:00)
[2017-01-01] MEDS ORDERED: ACETAMINOPHEN 325 MG TABLET PO PRN (23:00)
[2017-01-02] MEDS ORDERED: HYDR20TA PO ×2 (01:33→14:24)
[2017-01-02] MEDS ORDERED: METO10TA81 PO ×2 (01:33→14:24)
[2017-01-02 04:18] LABS: BASO # 0.1 x10^3/uL (0.0-0.2); BASO % 1 % (0-3); EOS # 0.2 x10^3/uL (0.0-0.7); EOS % 2 % (0-3); HEMATOCRIT 48.6 % (39.0-53.0); LYMPH # 5.3 x10^3/uL (1.0-4.8); LYMPH % 50 % (24-48); MEAN CORPUSCULAR HEMOGLOBIN 33 pg (25-35); MEAN CORPUSCULAR HGB CONC 35 g/dL (31-37); MEAN CORPUSCULAR VOLUME 93 fL (79-100); MONO # 0.8 x10^3/uL (0.0-1.1); MONO % 8 % (0-9); NEUT # 4.2 x10^3uL (1.8-7.7); NEUT % 39 % (31-73); PLATELET COUNT 285 x10^3/uL (140-400); RED BLOOD COUNT 5.23 x10^6/uL (4.30-5.70); WHITE BLOOD COUNT 10.6 x10^3/uL (4.0-11.0)
[2017-01-02 04:21] LABS: CALCIUM 8.6 mg/dL (8.5-10.1); CREATININE 1.2 mg/dL (0.7-1.3); GFR 65.5; POTASSIUM 3.9 mmol/L (3.5-5.1)
[2017-01-02] MEDS ORDERED: NICOTINE 21MG PATCH. TD PRN (04:30)
[2017-01-02 05:47] VITALS: BP 95/59
[2017-01-02] MEDS ORDERED: ALBUTEROL SULFATE 8GM INHALER. IH PRN (07:30)
[2017-01-02] MEDS ORDERED: LORazepam 1 MG TABLET PO PRN (07:30)
--- NOTE | 2017-01-02 08:24 | RAD ---
Single view of the Chest 01/01/2017 9:08 PM Indication: Chest pain Comparison: Chest radiograph March 20, 2013 Findings: There is no focal consolidation or infiltrate identified. There is no effusion or pneumothorax. The cardiomediastinal silhouette and pulmonary vasculature are within normal limits. No osseous abnormality is identified. Impression: No evidence of acute cardiopulmonary process.
[2017-01-02] MEDS ORDERED: ALBUTEROL SULFATE 2.5 MG/3 ML NEBU. NEB PRN (08:45)
[2017-01-02] MEDS ORDERED: hydrOXYzine HCL 25 MG TABLET ONE (08:58)
[2017-01-02] MEDS ORDERED: OMEGA-3 FATTY ACIDS/FISH OIL 1,000 MG CAPSULE. PO SCH (09:00)
[2017-01-02] MEDS ORDERED: HYDROCORTISONE 20 MG TABLET. PO SCH (09:00)
[2017-01-02] MEDS ORDERED: hydrOXYzine HCL 25 MG TABLET PO SCH (09:00)
[2017-01-02] MEDS ORDERED: FLUoxetine HCL 20 MG CAPSULE PO SCH (09:00)
[2017-01-02] MEDS ORDERED: METOPROLOL TART IMMED RELEASE 25 MG TABLET PO SCH (09:00)
[2017-01-02] MEDS ORDERED: MOMETASONE IH SCH (09:00)
[2017-01-02] MEDS ORDERED: FORMOTEROL IH SCH (09:00)
[2017-01-02] MEDS ORDERED: FLUTICASONE 50MCG/NASAL SPRAY 16GM BOTTLE. NS SCH (09:00)
[2017-01-02] MEDS ORDERED: traMADol 50 MG TABLET PO SCH (09:00)
[2017-01-02] MEDS ORDERED: POTASSIUM CHLORIDE 10 MEQ TABLET.ER. PO SCH (09:00)
[2017-01-02] MEDS ORDERED: NON FORMULARY ITEM (Ipratropium/Albuterol Sulfate (Combivent Respimat Inhal) 4 GM) IH SCH (09:00)
[2017-01-02] MEDS ORDERED: BUDESONIDE 0.5 MG/2 ML NEBU NEB SCH (09:00)
[2017-01-02] MEDS ORDERED: FAMOTIDINE 20 MG TABLET PO SCH (09:00)
[2017-01-02] MEDS ORDERED: SENNOSIDES 8.6 MG TABLET PO SCH (09:00)
[2017-01-02] MEDS ORDERED: rOPINIRole 1 MG TABLET. PO SCH (09:00)
[2017-01-02] MEDS ORDERED: METOCLOPRAMIDE 10 MG TABLET PO SCH (09:00)
[2017-01-02] MEDS ORDERED: METOPROLOL SUCC 24HR ER 25 MG TAB.ER.24H. PO ONE (09:02)
[2017-01-02] MEDS ORDERED: FAMOTIDINE 20 MG TABLET ONE (09:02)
[2017-01-02] MEDS ORDERED: POTASSIUM CHLORIDE 10 MEQ TABLET.ER. PO ONE (09:03)
[2017-01-02] MEDS ORDERED: FLUoxetine HCL 20 MG CAPSULE ONE (09:03)
[2017-01-02] MEDS ORDERED: rOPINIRole 0.5 MG TABLET. ONE (09:03)
[2017-01-02] MEDS ORDERED: SENNOSIDES 8.6 MG TABLET ONE (09:03)
[2017-01-02] MEDS ORDERED: METOCLOPRAMIDE 10 MG TABLET ONE (09:03)
[2017-01-02] MEDS ORDERED: OMEGA-3 FATTY ACIDS/FISH OIL 1,000 MG CAPSULE. PO ONE (09:03)
[2017-01-02] MEDS ORDERED: traMADol 50 MG TABLET ONE (09:04)
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
[2017-01-02] MEDS ORDERED: ASPIRIN 81 MG TAB.CHEW ONE (09:18)
[2017-01-02] MEDS ORDERED: ASPIRIN ENTERIC COATED 81 MG TABLET.DR. PO SCH (09:30)
[2017-01-02] MEDS ORDERED: KETOROLAC 15 MG/ML VIAL. IV PRN (09:30)
[2017-01-02] MEDS ORDERED: CLOPIDOGREL BISULFATE 75 MG TABLET PO SCH (09:45)
[2017-01-02 10:52] VITALS: BP 111/78
[2017-01-02] MEDS ORDERED: ALBUTEROL SULFATE 2.5 MG/3 ML NEBU. ONE (10:58)
[2017-01-02] MEDS ORDERED: BUDESONIDE 0.5 MG/2 ML NEBU ONE (10:58)
[2017-01-02] MEDS ORDERED: IBUPROFEN 600 MG TABLET. PO PRN (11:30)
[2017-01-02] MEDS ORDERED: ALBUTEROL SULFATE 2.5 MG/3 ML NEBU. NEB SCH (12:00)
[2017-01-02] MEDS ORDERED: IBUPROFEN 600 MG TABLET. PO SCH (12:00)
[2017-01-02] MEDS ORDERED: KETOROLAC 15 MG/ML VIAL. ONE (12:17)
[2017-01-02] MEDS ORDERED: FLUO10TA PO (14:24)
[2017-01-02] MEDS ORDERED: SIMV20TA3 PO (14:24)
[2017-01-02] MEDS ORDERED: METO25TA4 PO (14:24)
[2017-01-02 15:24] VITALS: BP 112/73
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
[2017-01-02] MEDS ORDERED: ATORVASTATIN CALCIUM 20 MG TABLET PO SCH (21:00)
== END 2017-01-02 16:13 | disposition home or self-care (01) | DRG 313 ==
LOC: ER 19:05 → 1 SOUTH 22:30
PROVIDERS: ADMIT Family Medicine; ATTEND Family Medicine
DX: R07.9 Chest pain, unspecified (principal); I25.10 Atherosclerotic heart disease of native coronary artery without angina pectoris; E27.1 Primary adrenocortical insufficiency; E78.5 Hyperlipidemia, unspecified; F12.90 Cannabis use, unspecified, uncomplicated; F17.210 Nicotine dependence, cigarettes, uncomplicated; F43.10 Post-traumatic stress disorder, unspecified; I10 Essential (primary) hypertension; J44.9 Chronic obstructive pulmonary disease, unspecified; K21.9 Gastro-esophageal reflux disease without esophagitis; E11.9 Type 2 diabetes mellitus without complications; K58.9 Irritable bowel syndrome, unspecified; F31.9 Bipolar disorder, unspecified; M79.7 Fibromyalgia; F19.10 Other psychoactive substance abuse, uncomplicated; M19.90 Unspecified osteoarthritis, unspecified site; F41.9 Anxiety disorder, unspecified; Z88.0 Allergy status to penicillin; Z88.2 Allergy status to sulfonamides; Z88.8 Allergy status to other drugs, medicaments and biological substances; Z88.6 Allergy status to analgesic agent; Z91.012 Allergy to eggs; Z91.040 Latex allergy status; Z59.0 Homelessness; Z79.02 Long term (current) use of antithrombotics/antiplatelets; Z79.82 Long term (current) use of aspirin; Z82.49 Family history of ischemic heart disease and other diseases of the circulatory system; Z91.19 Patient's noncompliance with other medical treatment and regimen; Z95.5 Presence of coronary angioplasty implant and graft; Z79.4 Long term (current) use of insulin; Z71.6 Tobacco abuse counseling
CPT/HCPCS: 36415; 71010; 80048; 80053; 83690; 83735; 83880; 84484; 85025; 93005; 94640; 99406; J1885; J3010; J7613; J7626; 99285-25

== ENCOUNTER 2017-01-03 23:12 | Emergency (ER) | payer SELFPAY ==
[~2017-01-03] VITALS: Ht 170.2 cm; Wt 110.4 kg
[~2017-01-03 23:12] MED LIST changes: +HYDR20TA PO; +METO10TA81 PO; +SIMV20TA3 PO
[2017-01-04] MEDS ORDERED: KETOROLAC 30 MG/ML VIAL. IV ONE
[2017-01-04] MEDS ORDERED: MORPHINE SULFATE 4 MG/ML DISP.SYRIN. IV/SQ PRN
[2017-01-04] MEDS ORDERED: ONDANSETRON PF 4 MG/2 ML VIAL. IV ONE
--- NOTE | 2017-01-04 | EKG ---
[address] [address] Test Date: 2017-01-03 Test Time: 23:51:41 Pat Name: HEATHER REESE Department: Room: Gender: M Keyliner: : 1970 Requested By: JOHN BRIGHT Order Number: [id number] Reading MD: Bruno Henriquez MD Measurements Intervals Etta Rate: 84 P: 29 NC: 152 QRS: 51 QRSD: 80 T: 28 QT: 354 QTc: 421 Interpretive Statements SINUS RHYTHM Electronically Signed On 01-05-2017 13:52:41 CDT by Bruno Henriquez MD
[2017-01-04 01:21] LABS: BASO # 0.1 x10^3/uL (0.0-0.2); BASO % 1 % (0-3); EOS # 0.1 x10^3/uL (0.0-0.7); EOS % 1 % (0-3); HEMATOCRIT 48.3 % (39.0-53.0); HEMOGLOBIN 16.9 g/dL (13.0-17.5); LYMPH # 3.8 x10^3/uL (1.0-4.8); LYMPH % 30 % (24-48); MEAN CORPUSCULAR HEMOGLOBIN 32 pg (25-35); MEAN CORPUSCULAR HGB CONC 35 g/dL (31-37); MEAN CORPUSCULAR VOLUME 92 fL (79-100); MONO # 0.7 x10^3/uL (0.0-1.1); MONO % 6 % (0-9); NEUT # 7.8 x10^3uL (1.8-7.7); NEUT % 62 % (31-73); PLATELET COUNT 291 x10^3/uL (140-400); RED BLOOD COUNT 5.23 x10^6/uL (4.30-5.70); RED CELL DISTRIBUTION WIDTH 13.1 % (11.5-14.5); WHITE BLOOD COUNT 12.6 x10^3/uL (4.0-11.0)
[2017-01-04 01:33] LABS: ALBUMIN 3.7 g/dL (3.4-5.0); ALBUMIN/GLOBULIN RATIO 1.2 (1.0-1.7); CALCIUM 8.7 mg/dL (8.5-10.1); CREATININE 0.9 mg/dL (0.7-1.3); GFR 91.3; POTASSIUM 4.1 mmol/L (3.5-5.1); TOTAL BILIRUBIN 0.5 mg/dL (0.2-1.0); TOTAL PROTEIN 6.9 g/dL (6.4-8.2)
[2017-01-04] MEDS ORDERED: IOHEXOL 300 MG/ML 75 ML VIAL. IV ONE (02:45)
[2017-01-04] MEDS ORDERED: CONTRAST GIVEN MC PRN (02:45)
--- NOTE | 2017-01-04 03:08 | RAD ---
EXAM: Abdomen and pelvis CT with intravenous contrast. HISTORY: 46-year-old male with right-sided/upper quadrant abdominal pain for 2 days. TECHNIQUE: Computed tomographic images of the abdomen and pelvis were obtained following the administration of 75 cc of Omni 300 intravenous contrast. Multiplanar reformatting was performed. PQRS compliance statement: One or more of the following individualized dose reduction techniques were utilized for this examination: 1. Automated exposure control 2. Adjustment of the mA and/or kV according to patient size 3. Use of iterative reconstruction technique COMPARISON: None. FINDINGS: The lung bases demonstrate no acute finding. The liver, spleen, pancreas, adrenal glands and bilateral kidneys demonstrate no focal abnormality. The gallbladder is surgically absent. The GI tract demonstrates no dilated bowel loops to suggest obstruction. The cecum is well visualized and surrounded by fat in the right lower quadrant, without the appendix seen extending off the cecum. No soft tissue stranding is present in the region to suggest acute inflammation. The urinary bladder is grossly unremarkable. No intra-abdominal or pelvic free fluid, free air or significant lymphadenopathy is seen. Aorta is normal in caliber, with atherosclerotic calcification present. Overlying soft tissues and visualized osseous structures demonstrate no acute or suspicious finding. IMPRESSION: No acute intra-abdominal or pelvic process seen. Electronically signed by: Joceline Edge MD (01/04/2017 3:04 AM) [facility]
--- NOTE | 2017-01-04 03:16 | PHYS DOC ---
General Chief Complaint: ABDOMINAL PAIN Stated Complaint: RIGHT UPPER QUAD PAIN Time Seen by MD: 23:25 Source: patient, old records Exam Limitations: no limitations Problems: History of Present Illness Initial Comments Patient is a 46-year-old male who comes to the ED via EMS complaining of right upper quadrant pain. Patient states that 2 hours ago he developed sudden onset severe right upper quadrant pain. He states he's had some mild nausea no vomiting and last bowel movement was yesterday described as normal. No fever chills sweats or myalgias, patient denies alcohol intake but is a heavy smoker. He was admitted 2 days ago and ruled out for chest pain and denies any new or changing chest pain or shortness of breath. Patient is status post cholecystectomy and describes his pain as right upper quadrant sharp and stabbing the 10 out of 10 no exacerbating or relieving factors. He denies any fried or fatty food intake states he did have shepherds by earlier in the day. Patient states "I've just been out in the rain all day." Patient states that he's had symptoms similar today in the past and "they always admitted me." Patient advised if we find an emergent condition he'll be admitted or transferred as necessary. 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 ED vital signs are stable. Timing/Duration: 1-3 hours Severity: severe Modifying Factors: improves with other Associated Symptoms: other Allergies: Coded Allergies: cinnamon (Verified Allergy, Severe, Anaphylaxis, 06/07/13) egg (Unverified Allergy, Severe, Anaphylaxis, 06/07/13) latex (Verified Allergy, Severe, Anaphylaxis, 06/07/13) Penicillins (Unverified Adverse Reaction, Severe, Nausea and Vomiting, 06/07) Sulfa (Sulfonamide Antibiotics) (Verified Adverse Reaction, Severe, migraines, 06/07/13) codeine (Unverified Adverse Reaction, Severe, hyperactive, 06/07/13) Past Medical History Medical History: arthritis, COPD, heart disease, other (Adal's, gastroparesis) Surgical History: other (cardiac stent, cholecystectomy, appendectomy) Family History Significant Family History: no pertinent family hx Social History Smoker: cigarettes Alcohol: none Drugs: none Review of Systems Constitutional: denies chills, denies diaphoresis, denies fever, denies malaise Respiratory: denies cough, denies shortness of breath, denies wheezing Cardiovascular: denies chest pain, denies palpitations, denies syncope Gastrointestinal: abdominal pain, denies diarrhea, denies nausea, denies vomiting Musculoskeletal: denies back pain, denies joint swelling, denies neck pain Psychiatric/Neurological: denies headache, denies numbness, denies paresthesia Hematologic/Lymphatic: denies blood clots, denies easy bleeding, denies easy bruising Physical Exam General Appearance: no apparent distress, obese Ear, Nose, Throat: hearing grossly normal, normal ENT inspection, normal pharynx Neck: non-tender, supple Respiratory: normal breath sounds, no respiratory distress Cardiovascular: normal peripheral pulses, regular rate, rhythm Gastrointestinal: normal bowel sounds, non tender, soft Back: no CVA tenderness, no vertebral tenderness Extremities: non-tender, normal inspection 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 Interpreted by Dr. Bright Acute abdominal series: No acute cardiopulmonary process, nonspecific dilated loops of bowel with some fluid levels, will check CT evaluation. Interpreted by Dr. Bright. PATIENT: HETAHER REESE ACCOUNT: [id number] : 1970 LOCATION: ER AGE: 46 SEX: M EXAM STATUS: REG ER ORD. PHYSICIAN: JOHN BRIGHT DO REASON: ruq pain PROCEDURE: CT ABD PELV W/ IV CONTRST ONLY EXAM: Abdomen and pelvis CT with intravenous contrast. HISTORY: 46-year-old male with right-sided/upper quadrant abdominal pain for 2 days. TECHNIQUE: Computed tomographic images of the abdomen and pelvis were obtained following the administration of 75 cc of Omni 300 intravenous contrast. Multiplanar reformatting was performed. PQRS compliance statement: One or more of the following individualized dose reduction techniques were utilized for this examination: 1. Automated exposure control 2. Adjustment of the mA and/or kV according to patient size 3. Use of iterative reconstruction technique COMPARISON: None. FINDINGS: The lung bases demonstrate no acute finding. The liver, spleen, pancreas, adrenal glands and bilateral kidneys demonstrate no focal abnormality. The gallbladder is surgically absent. The GI tract demonstrates no dilated bowel loops to suggest obstruction. The cecum is well visualized and surrounded by fat in the right lower quadrant, without the appendix seen extending off the cecum. No soft tissue stranding is present in the region to suggest acute inflammation. The urinary bladder is grossly unremarkable. No intra-abdominal or pelvic free fluid, free air or significant lymphadenopathy is seen. Aorta is normal in caliber, with atherosclerotic calcification present. Overlying soft tissues and visualized osseous structures demonstrate no acute or suspicious finding. IMPRESSION: No acute intra-abdominal or pelvic process seen. Electronically signed by: Cely Edge MD (01/04/2017 3:04 AM) [facility] DICTATED AND SIGNED BY: CELY EDGE MD DATE: 01/04/17 0258 CC: PCP,NO; JOHN BRIGHT DO ~ Labs and urine studies unremarkable I discussed negative findings with the patient at length. I discussed over-the- counter and prescription medications as well as need for outpatient follow-up. Patient's symptoms are controlled his questions are answered he expressed agreement and understanding with treatment plan. Departure Time of Disposition: 03:36 Disposition: 01 HOME, SELF-CARE Diagnosis: abdominal pain Condition: STABLE Patient Instructions: Abdominal Pain (Nonspecific) Additional Instructions: As discussed no emergent cause for your symptoms identified in the emergency department tonight. Aggressive hydration with Gatorade or water. [id number] stool softeners as needed. Clear liquids, advance diet to bland slowly as tolerated. Zofran ODT start pack was dispensed to you, take one every 6 hours as needed for nausea. Prescription: Dicyclomine You will need to follow-up with a doctor. It would not hurt to contact [facility] once again to see if there are now accepting new patients. Additionally ED staff can give you names of [facility] who accepts walk-in appointments. Follow-up with a doctor on Saturday for recheck. Return to the ED with new or changing symptoms. JOHN BRIGHT DO Jan 04, 2017 03:16
[2017-01-04] MEDS ORDERED: DICY20TA3 PO (03:36)
[2017-01-04] MEDS ORDERED: DICYCLOMINE HCL 20 MG TABLET PO ONE (03:45)
[2017-01-04] MEDS ORDERED: ONDANSETRON 4MG ODT 4TABLET STARTPACK. PO ONE ×2 (03:45→03:58)
[2017-01-04] MEDS ORDERED: DICYCLOMINE HCL 20 MG TABLET ONE (03:58)
[2017-01-04 04:01] VITALS: BP 101/55
[2017-01-04 05:36] LABS: AMPHETAMINE/METHAMPHETAMINE NEG (NEG); BARBITURATES NEG (NEG); BENZODIAZEPINES POS (NEG); CANNABINOIDS NEG (NEG); COCAINE NEG (NEG); METHADONE NEG (NEG); OPIATES NEG (NEG); PHENCYCLIDINE NEG (NEG)
[2017-01-04 05:40] LABS: BILIRUBIN,URINE NEG (NEG); CLARITY,URINE CLEAR; COLOR,URINE YELLOW; GLUCOSE,URINE NEG (NEG)
[2017-01-04 05:41] LABS: BACTERIA,URINE FEW /HPF (0-FEW); NITRITE,URINE NEG (NEG); RBC,URINE 0 /HPF (0-2); SQUAMOUS EPITHELIAL CELL,UR OCC /LPF; UROBILINOGEN,URINE 0.2 mg/dL (0.2 mg/dL)
--- NOTE | 2017-01-04 07:08 | RAD ---
Acute abdomen series with chest, 3 views, 01/04/2017: History: Upper abdominal pain There is gas and stool in scattered portions of the colon a nonspecific pattern. No free air is seen in the abdomen. Surgical clips are present in the right upper quadrant. There is no evidence of organomegaly. The heart size is normal. A coronary artery stent is projected over the left side of the heart. The pulmonary vascularity is normal. No pulmonary infiltrates are seen. There is no evidence of pleural fluid. IMPRESSION: No acute abdominal abnormality is detected.
== END 2017-01-04 04:04 | disposition home or self-care (01) ==
LOC: ER 23:12
DX: R10.11 Right upper quadrant pain (principal); R11.0 Nausea; J44.9 Chronic obstructive pulmonary disease, unspecified; E27.1 Primary adrenocortical insufficiency; I51.9 Heart disease, unspecified; F17.210 Nicotine dependence, cigarettes, uncomplicated; Z90.49 Acquired absence of other specified parts of digestive tract; Z95.5 Presence of coronary angioplasty implant and graft; Z59.0 Homelessness; Z91.012 Allergy to eggs; Z91.040 Latex allergy status; Z88.5 Allergy status to narcotic agent; Z88.2 Allergy status to sulfonamides; Z91.018 Allergy to other foods; Z88.0 Allergy status to penicillin
CPT/HCPCS: 36415; 74022; 74177; 80053; 80307; 81001; 83690; 85025; 93005; 96374; 96375; 99285; J1885; J2270; J2405; Q0162; Q9967; G0479

== ENCOUNTER 2017-02-02 21:44 | Emergency (ER) | payer SELFPAY ==
[~2017-02-02] VITALS: Ht 172.7 cm; Wt 90.7 kg
[~2017-02-02 21:44] MED LIST changes: +DICY20TA3 PO
[2017-02-02] MEDS ORDERED: 0.9 % SODIUM CHLORIDE 10 ML DISP.SYRIN. IV PRN (22:15)
[2017-02-02] MEDS ORDERED: IV NORMAL SALINE 1,000ML 1,000 ML IV SCH (22:15)
[2017-02-02] MEDS ORDERED: METOCLOPRAMIDE HCL 10 MG/2 ML VIAL. IV ONE (22:45)
[2017-02-02] MEDS ORDERED: HYDR12.53 PO (23:25)
[2017-02-02 23:47] LABS: BASO # 0.1 x10^3/uL (0.0-0.2); BASO % 1 % (0-3); EOS # 0.3 x10^3/uL (0.0-0.7); EOS % 3 % (0-3); HEMATOCRIT 49.2 % (39.0-53.0); HEMOGLOBIN 17.1 g/dL (13.0-17.5); LYMPH # 4.8 x10^3/uL (1.0-4.8); LYMPH % 40 % (24-48); MEAN CORPUSCULAR HEMOGLOBIN 32 pg (25-35); MEAN CORPUSCULAR HGB CONC 35 g/dL (31-37); MEAN CORPUSCULAR VOLUME 92 fL (79-100); MONO # 0.9 x10^3/uL (0.0-1.1); MONO % 8 % (0-9); NEUT % 50 % (31-73); PLATELET COUNT 303 x10^3/uL (140-400); RED BLOOD COUNT 5.34 x10^6/uL (4.30-5.70); RED CELL DISTRIBUTION WIDTH 13.6 % (11.5-14.5); WHITE BLOOD COUNT 12.1 x10^3/uL (4.0-11.0)
[2017-02-02 23:58] LABS: ALBUMIN 3.7 g/dL (3.4-5.0); DIRECT BILIRUBIN 0.1 mg/dL (0.0-0.2); GFR 80.8; POTASSIUM 3.7 mmol/L (3.5-5.1); TOTAL BILIRUBIN 0.2 mg/dL (0.2-1.0); TOTAL PROTEIN 7.7 g/dL (6.4-8.2)
[2017-02-03] LABS: BACTERIA,URINE 0 /HPF (0-FEW); BILIRUBIN,URINE NEG (NEG); CLARITY,URINE CLEAR; COLOR,URINE YELLOW; GLUCOSE,URINE NEG (NEG); NITRITE,URINE NEG (NEG); RBC,URINE RARE /HPF (0-2); UROBILINOGEN,URINE 0.2 mg/dL (0.2 mg/dL); WBC,URINE RARE /HPF (0-4)
[2017-02-03] MEDS ORDERED: FAMO-63 PO (00:06)
[2017-02-03] MEDS ORDERED: HYDR-2758 PO (00:06)
--- NOTE | 2017-02-03 00:06 | PHYS DOC ---
Past History Past Medical History: CAD, COPD, Other Past Surgical History: Appendectomy, Cholecystectomy, Other Smoking: Non-smoker Alcohol Use: None Drug Use: None Adult General Chief Complaint Chief Complaint: ABDOMINAL PAIN HPI HPI 46-year-old male presenting to the emergency department today with epigastric abdominal pain that is a sharp shooting pain nonradiating mild intermittent and without alleviating factors. He reports a history of gastroparesis. He denies nausea or vomiting. He denies fevers or chills. It is not affected by meals. He was able to eat a full meal for dinner. He reports normal urination. Mild intermittent constipation over the past few days. Review of systems is negative for chest pain shortness of breath nausea vomiting fevers chills. He denies diaphoresis. All other review of systems is negative unless otherwise noted in history of present illness. ED course: 46-year-old gentleman presenting with epigastric abdominal pain. Patient is well-appearing on examination. Abdomen soft and nontender. Patient was given pain and nausea meds along with fluids. labs unremarkable. Reexamination his pain is improved. Repeat abdominal exam continues to show soft nontender abdomen. The patient was then discharged home in stable condition to follow up with their primary care physician over the next 2-3 days. They were to return if their symptoms worsened or if they were concerned for any reason. [id number] discharge instructions and return precautions were given. Patient's questions were answered to their satisfaction. Patient is comfortable plan. Review of Systems Review of Systems SEE ABOVE. Current Medications Current Medications Current Medications Medications (Trade) Dose Ordered Sig/[facility] Start Time Stop Time Status Last Admin Dose Admin Fentanyl Citrate (Fentanyl 2ml Vial) 100 mcg STK-MED ONCE 02/02/17 22:45 02/02/17 22:46 DC Metoclopramide HCl (Reglan Vial) 10 mg 1X ONCE 02/02/17 22:45 02/02/17 22:46 DC 02/02/17 23:18 10 MG Sodium Chloride (Normal Saline Flush) 10 ml QSHIFT PRN 02/02/17 22:15 Allergies Allergies Allergies Coded Allergies Type Severity Reaction Last Updated Verified cinnamon Allergy Severe Anaphylaxis 02/02/17 Yes egg Allergy Severe Anaphylaxis 02/02/17 No latex Allergy Severe Anaphylaxis 02/02/17 Yes Penicillins Adverse Reaction Severe Nausea and Vomiting 02/02/17 No Sulfa (Sulfonamide Antibiotics) Adverse Reaction Severe migraines 02/02/17 Yes codeine Adverse Reaction Severe hyperactive 02/02/17 No Physical Exam Physical Exam SEE ABOVE Constitutional: Well developed, well nourished, no acute distress, non-toxic appearance. [] HENT: Normocephalic, atraumatic, bilateral external ears normal, oropharynx moist, no oral exudates, nose normal. [] Eyes: PERRLA, EOMI, conjunctiva normal, no discharge. [] Neck: Normal range of motion, no tenderness, supple, no stridor. [] Cardiovascular:Heart rate regular rhythm, no murmur [] Lungs & Thorax: Bilateral breath sounds clear to auscultation [] Abdomen: Soft nontender abdomen without rebound tenderness or guarding present. Negative McBurneys point. Negative Rodriguez sign. No ecchymosis present. Skin: Warm, dry, no erythema, no rash. [] Back: No tenderness, no CVA tenderness. [] Extremities: No tenderness, no cyanosis, no clubbing, ROM intact, no edema. [] Neurologic: Alert and oriented X 3, normal motor function, normal sensory function, no focal deficits noted. [] Psychologic: Affect normal, judgement normal, mood normal. [] Current Patient Data Lab Results Laboratory Tests Test 02/02/17 23:11 White Blood Count 12.1 x10^3/uL (4.0-11.0) H Red Blood Count 5.34 x10^6/uL (4.30-5.70) Hemoglobin 17.1 g/dL (13.0-17.5) Hematocrit 49.2 % (39.0-53.0) Mean Corpuscular Volume 92 fL (79-100) Mean Corpuscular Hemoglobin 32 pg (25-35) Mean Corpuscular Hemoglobin Concent 35 g/dL (31-37) Red Cell Distribution Width 13.6 % (11.5-14.5) Platelet Count 303 x10^3/uL (140-400) Neutrophils (%) (Auto) 50 % (31-73) Lymphocytes (%) (Auto) 40 % (24-48) Monocytes (%) (Auto) 8 % (0-9) Eosinophils (%) (Auto) 3 % (0-3) Basophils (%) (Auto) 1 % (0-3) Neutrophils # (Auto) 6.0 x10^3uL (1.8-7.7) Lymphocytes # (Auto) 4.8 x10^3/uL (1.0-4.8) Monocytes # (Auto) 0.9 x10^3/uL (0.0-1.1) Eosinophils # (Auto) 0.3 x10^3/uL (0.0-0.7) Basophils # (Auto) 0.1 x10^3/uL (0.0-0.2) Urine Collection Type Void Urine Color Yellow Urine Clarity Clear Urine pH 5.5 Urine Specific [place] 1.015 Urine Protein Neg (NEG-TRACE) Urine Glucose (UA) Neg mg/dL (NEG) Urine Ketones (Stick) Neg mg/dL (NEG) Urine Blood Neg (NEG) Urine Nitrite Neg (NEG) Urine Bilirubin Neg (NEG) Urine Urobilinogen Dipstick 0.2 mg/dL (0.2 mg/dL) Urine Leukocyte Esterase Neg (NEG) Urine RBC Rare /HPF (0-2) Urine WBC Rare /HPF (0-4) Urine Squamous Epithelial Cells None /LPF Urine Bacteria 0 /HPF (0-FEW) Sodium Level 138 mmol/L (136-145) Potassium Level 3.7 mmol/L (3.5-5.1) Chloride Level 101 mmol/L (98-107) Carbon Dioxide Level 29 mmol/L (21-32) Anion Gap 8 (6-14) Blood Urea Nitrogen 11 mg/dL (8-26) Creatinine 1.0 mg/dL (0.7-1.3) Estimated GFR (Cockcroft-Gault) 80.8 Glucose Level 96 mg/dL (70-99) Calcium Level 9.0 mg/dL (8.5-10.1) Total Bilirubin 0.2 mg/dL (0.2-1.0) Direct Bilirubin 0.1 mg/dL (0.0-0.2) Aspartate Amino Transferase (AST) 33 U/L (15-37) Alanine Aminotransferase (ALT) 65 U/L (16-63) H Alkaline Phosphatase 140 U/L (46-116) H Total Protein 7.7 g/dL (6.4-8.2) Albumin 3.7 g/dL (3.4-5.0) Lipase 143 U/L (73-393) EKG EKG [] Radiology/Procedures Radiology/Procedures [] Course & Med Decision Making Course & Med Decision Making Pertinent Labs and Imaging studies reviewed. (See chart for details) [] Dragon Disclaimer Dragon Disclaimer This electronic medical record was generated, in whole or in part, using a voice recognition dictation system. Departure Departure: Impression: Primary Impression: Abdominal pain Disposition: HOME, SELF-CARE Condition: STABLE Referrals: PCP,NO (PCP) Patient Instructions: Abdominal Pain Additional Instructions: Thank you for allowing us to participate in your care today. Followup with your primary care physician in 3 days if your symptoms do not improve. Call your Primary Doctor tomorrow and inform them of your visit today. If you do not have a primary care provider you can ask for a list of our primary care providers. Return to the emergency department you have any new or concerning findings. This should be evaluated by the primary care physician and any necessary consulting services for continued management within a few days after discharge. Return to emergency room if you have any new or concerning symptoms including but not limited to fever, chills, nausea, vomiting, intractable pain, any new rashes, chest pain, shortness of air, uncontrolled bleeding, difficulty breathing, and/or vision loss. You may have been prescribed medication that can change in your level of thinking and ability to operate machinery. These medications include hydrocodone and Ativan. Also, Benadryl has been known to do this as well. Be sure to check with your pharmacist and ask if the medications you've prescribed can affect your level of consciousness. I recommend not operating heavy machinery or driving while on medication such as these. Scripts Famotidine (PEPCID) 20 Mg Tablet 1 TAB PO BID, #10 TAB 0 Refills Prov: TAWANNA LI MD 02/03/17 Hydrocodone Bit/Acetaminophen (HYDROCODONE-APAP 5-325 ) 1 Each Tablet 1 TAB PO PRN Q6HRS Y for PAIN, #5 TAB 0 Refills Prov: TAWANNA LI MD 02/03/17 TAWANNA LI MD Feb 03, 2017 00:06
[2017-02-03 01:00] VITALS: BP 116/73
== END 2017-02-03 01:07 | disposition home or self-care (01) ==
LOC: ER 21:44
DX: R10.13 Epigastric pain (principal); K59.00 Constipation, unspecified; I25.10 Atherosclerotic heart disease of native coronary artery without angina pectoris; J44.9 Chronic obstructive pulmonary disease, unspecified; Z90.49 Acquired absence of other specified parts of digestive tract; Z91.012 Allergy to eggs; Z91.040 Latex allergy status; Z88.5 Allergy status to narcotic agent; Z88.0 Allergy status to penicillin; Z91.018 Allergy to other foods
CPT/HCPCS: 36415; 80048; 80076; 81001; 83690; 85025; 96361; 96374; 96375; 96376; 99284; J2765; J3010; J7030

== ENCOUNTER 2017-03-07 10:45 | Inpatient (IN) | payer BC, OTHER ==
[~2017-03-07] VITALS: Ht 172.7 cm; Wt 97.5 kg
[~2017-03-07 10:45] MED LIST changes: +FAMO-63 PO; +HYDR-2758 PO; +HYDR12.53 PO
[2017-03-07] MEDS ORDERED: MORPHINE SULFATE 2 MG/ML DISP.SYRIN. IV ONE (11:30)
[2017-03-07 11:36] LABS: BASO # 0.1 x10^3/uL (0.0-0.2); BASO % 1 % (0-3); EOS # 0.1 x10^3/uL (0.0-0.7); EOS % 1 % (0-3); HEMATOCRIT 48.9 % (39.0-53.0); HEMOGLOBIN 17.1 g/dL (13.0-17.5); LYMPH # 3.3 x10^3/uL (1.0-4.8); LYMPH % 23 % (24-48); MEAN CORPUSCULAR HEMOGLOBIN 32 pg (25-35); MEAN CORPUSCULAR HGB CONC 35 g/dL (31-37); MEAN CORPUSCULAR VOLUME 93 fL (79-100); MONO # 0.9 x10^3/uL (0.0-1.1); MONO % 6 % (0-9); NEUT # 9.9 x10^3uL (1.8-7.7); NEUT % 69 % (31-73); PLATELET COUNT 330 x10^3/uL (140-400); RED BLOOD COUNT 5.26 x10^6/uL (4.30-5.70); RED CELL DISTRIBUTION WIDTH 14.2 % (11.5-14.5); WHITE BLOOD COUNT 14.4 x10^3/uL (4.0-11.0)
--- NOTE | 2017-03-07 11:51 | RAD ---
PORTABLE CHEST 1V History: CHEST PAIN
PRIOR CXR SENT. Comparison: January 01, 2017 images available but the report is not available. Findings: Cardiomediastinal silhouette is within normal limits. No focal airspace consolidation. No pneumothorax identified. No evidence of pleural effusion. Impression: No radiographic evidence of active airspace consolidation. Electronically signed by: Keron Soni MD (03/07/2017 11:48 AM) [id number]
[2017-03-07 11:53] LABS: AMPHETAMINE/METHAMPHETAMINE NEG (NEG); BARBITURATES NEG (NEG); BENZODIAZEPINES NEG (NEG); CANNABINOIDS NEG (NEG); COCAINE NEG (NEG); METHADONE NEG (NEG); OPIATES NEG (NEG); PHENCYCLIDINE NEG (NEG)
[2017-03-07 12:00] LABS: ALBUMIN 3.6 g/dL (3.4-5.0); CALCIUM 8.8 mg/dL (8.5-10.1); GFR 80.8; MAGNESIUM 2.1 mg/dL (1.8-2.4); POTASSIUM 3.7 mmol/L (3.5-5.1); TOTAL BILIRUBIN 0.3 mg/dL (0.2-1.0); TOTAL PROTEIN 7.3 g/dL (6.4-8.2)
[2017-03-07] MEDS ORDERED: methylPREDNISolone SOD SUCC PF 125 MG/2 ML VIAL. IV ONE (12:00)
[2017-03-07] MEDS ORDERED: HYDROCORTISONE SOD SUCC/PF 100 MG/2 ML VIAL. IV ONE (12:00)
--- NOTE | 2017-03-07 12:02 | PHYS DOC ---
Past History Past Medical History: CAD, COPD, Depression, Diabetes, High Cholesterol, Hypertension, Kidney Stones, Other Past Surgical History: Appendectomy, Cholecystectomy Smoking: Non-smoker Alcohol Use: Occasionally Drug Use: Marijuana Social History Narrative: no recent use Adult General Chief Complaint Chief Complaint: CHEST PAIN HPI HPI 46-year-old male patient with history of dyslipidemia, hypertension, diabetes mellitus, smoking, coronary artery disease with several stent placement and family history of coronary artery disease brought in by EMS because of chest pain. Patient complaining of sudden onset of nonexertional substernal and left- sided chest pain as a sharp pain with radiation to his neck and left shoulder and associated with nausea, dizziness, palpitation, generalized paresthesia and near syncope that it started about an over prior to arrival to ER. Patient states the pain was 10 over 10 and did not change with 324 mg of aspirin and nitroglycerin 1 given by EMS. Patient states she had the same pain with his previous episodes of heart attack. Patient complaining of marked cough and nasal congestion without fever and chills, vomiting, sick contact. Patient states he has history of [place] disease and did not take his medication today. Review of Systems Review of Systems Constitutional: Denies fever or chills [] Eyes: Denies change in visual acuity, redness, or eye pain [] HENT: Denies nasal congestion or sore throat [] Respiratory: He port cough and shortness of breath [] Cardiovascular: No additional information not addressed in HPI [] GI: Denies abdominal pain, vomiting, bloody stools or diarrhea , reports nausea [] : Denies dysuria or hematuria [] Musculoskeletal: Denies back pain or joint pain [] Integument: Denies rash or skin lesions [] Neurologic: Denies headache, focal weakness or sensory changes [] Endocrine: Denies polyuria or polydipsia [] All other systems were reviewed and found to be within normal limits, except as documented in this note. Current Medications Current Medications Current Medications Medications (Trade) Dose Ordered Sig/Miguel A Start Time Stop Time Status Last Admin Dose Admin Hydrocortisone Sodium Succinate (Solu-CORTEF) 100 mg 1X ONCE 03/07/17 12:00 03/07/17 12:01 Methylprednisolone Sodium Succinate (SOLU-Medrol 125MG VIAL) 125 mg 1X ONCE 03/07/17 12:00 03/07/17 12:01 Morphine Sulfate (Morphine 2mg Syringe) 2 mg 1X ONCE 03/07/17 11:30 03/07/17 11:31 DC 03/07/17 11:26 2 MG Allergies Allergies Allergies Coded Allergies Type Severity Reaction Last Updated Verified cinnamon Allergy Severe Anaphylaxis 02/02/17 Yes egg Allergy Severe Anaphylaxis 02/02/17 No latex Allergy Severe Anaphylaxis 02/02/17 Yes Penicillins Adverse Reaction Severe Nausea and Vomiting 02/02/17 No Sulfa (Sulfonamide Antibiotics) Adverse Reaction Severe migraines 02/02/17 Yes codeine Adverse Reaction Severe hyperactive 02/02/17 No Physical Exam Physical Exam Constitutional: Well developed, well nourished, mild distress, non-toxic appearance, anxious. [] HENT: Normocephalic, atraumatic, bilateral external ears normal, oropharynx moist, no oral exudates, nose normal. [] Eyes: PERRLA, EOMI, conjunctiva normal, no discharge. [] Neck: Normal range of motion, no tenderness, supple, no stridor. [] Cardiovascular:Heart rate regular rhythm, no murmur [] Lungs & Thorax: Bilateral breath sounds clear to auscultation [] Abdomen: Bowel sounds normal, soft, no tenderness, no masses, no pulsatile masses. [] Skin: Warm, dry, no erythema, no rash. [] Back: No tenderness, no CVA tenderness. [] Extremities: No tenderness, no cyanosis, no clubbing, ROM intact, no edema. [] Neurologic: Alert and oriented X 3, normal motor function, normal sensory function, no focal deficits noted. [] Psychologic: Affect normal, judgement normal, mood normal. [] Current Patient Data Vital Signs Vital Signs Date Time Temp Pulse Resp B/P (MAP) Pulse Ox O2 Delivery O2 Flow Rate FiO2 03/07/17 11:26 12 94 Room Air 03/07/17 11:25 74 129/67 (87) 03/07/17 10:48 98.2 Lab Results Laboratory Tests Test 03/07/17 11:22 03/07/17 11:35 White Blood Count 14.4 x10^3/uL (4.0-11.0) H Red Blood Count 5.26 x10^6/uL (4.30-5.70) Hemoglobin 17.1 g/dL (13.0-17.5) Hematocrit 48.9 % (39.0-53.0) Mean Corpuscular Volume 93 fL (79-100) Mean Corpuscular Hemoglobin 32 pg (25-35) Mean Corpuscular Hemoglobin Concent 35 g/dL (31-37) Red Cell Distribution Width 14.2 % (11.5-14.5) Platelet Count 330 x10^3/uL (140-400) Neutrophils (%) (Auto) 69 % (31-73) Lymphocytes (%) (Auto) 23 % (24-48) L Monocytes (%) (Auto) 6 % (0-9) Eosinophils (%) (Auto) 1 % (0-3) Basophils (%) (Auto) 1 % (0-3) Neutrophils # (Auto) 9.9 x10^3uL (1.8-7.7) H Lymphocytes # (Auto) 3.3 x10^3/uL (1.0-4.8) Monocytes # (Auto) 0.9 x10^3/uL (0.0-1.1) Eosinophils # (Auto) 0.1 x10^3/uL (0.0-0.7) Basophils # (Auto) 0.1 x10^3/uL (0.0-0.2) Prothrombin Time 10.9 SEC (9.4-11.4) Prothrombin Time INR 1.1 (0.9-1.1) Troponin I Quantitative < 0.017 ng/mL (0-0.055) Urine Opiates Screen Neg (NEG) Urine Methadone Screen Neg (NEG) Urine Barbiturates Neg (NEG) Urine Phencyclidine Screen Neg (NEG) Urine Amphetamine/Methamphetamine Neg (NEG) Urine Benzodiazepines Screen Neg (NEG) Urine Cocaine Screen Neg (NEG) Urine Cannabinoids Screen Neg (NEG) Urine Ethyl Alcohol Neg (NEG) EKG EKG [EKG interpreted by me. EKG at 1040 showed normal sinus rhythm at rate of 77, no ST and T wave abnormality,] Radiology/Procedures Radiology/Procedures Chest x-ray was unremarkable[] Course & Med Decision Making Course & Med Decision Making Pertinent Labs and Imaging studies reviewed. (See chart for details) Evaluation of patient in ER showed 46-year-old male patient with multiple cardiac risk factor brought in by EMS because of chest pain. Patient looked very comfortable about rated his pain 10 over 10 and asking for pain medication frequently. Patient felt better with morphine. Labs and EKG and chest x-ray was unremarkable. Because of multiple cardiac hysterectomy plan to admit patient for observation for chest pain. Patient has history of [place]'s disease and did not take his medication today and treated with Solu-Medrol and Solu-Cortef in ER. Dr. Bean on-call hospitalist accepted admission at 1256. [] Dragon Disclaimer Dragon Disclaimer This electronic medical record was generated, in whole or in part, using a voice recognition dictation system. Departure Departure: Impression: Primary Impression: Acute chest pain Additional Impressions: Adal disease History of coronary artery disease History of diabetes mellitus History of hypertension Tobacco abuse Tobacco abuse counseling Dyslipidemia Disposition: 09 ADMITTED INPATIENT (At 1257) Admitting Physician: Vivien Bean Condition: IMPROVED Referrals: PCP,NO (PCP) Problem Qualifiers MONA TAYLOR MD Mar 07, 2017 12:02
--- NOTE | 2017-03-07 12:42 | EKG ---
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
[2017-03-07] MEDS ORDERED: NITROGLYCERIN SUBLINGUAL 0.4 MG BOTTLE OF 25. SL ONE (13:45)
[2017-03-07 15:20] VITALS: BP 119/80
[2017-03-07] MEDS: diazePAM 2 MG TABLET PO PRN (17:47)
[2017-03-07] MEDS: HYDROcodone/APAP 5/325MG 1 TAB TABLET PO PRN (17:47)
[2017-03-07] MEDS: NICOTINE 14MG PATCH. TD SCH (17:47)
--- NOTE | 2017-03-07 18:56 | HP ---
ADMIT DATE: 03/07/2017 HISTORY OF PRESENT ILLNESS: The patient is a 46-year-old male patient who came to the Emergency Room complaining of left-sided chest pain radiating to his neck and left side of the face. The pain started suddenly and nonexertional substernal left-sided, which is a sharp pain radiating to his neck and left shoulder associated with nausea, dizziness, palpitations, generalized paresthesia near syncope that started about an hour prior to arrival to the Emergency Room. He states the pain was 10/10, did not change with 324 mg of aspirin and nitroglycerin sublingually given by the emergency medical services personnel. He said he had the same pain with his previous episodes of heart attack. The patient is complaining of marked cough and nasal congestion without fever or chills. He is known to have history of [place]'s disease and he did not take his medication apparently today. He apparently was here in 12/2016 for what he describes as addisonian crisis. PAST MEDICAL HISTORY: Significant for coronary artery disease status post PCI with stent deployment x 4, diabetes mellitus, hypertension, hyperlipidemia, [place]'s disease. He has also diabetic gastroparesis, nephrolithiasis, fatty liver and chronic bronchitis as well as obstructive sleep apnea. PAST SURGICAL HISTORY: Significant for PTCA with stent deployment, appendectomy, left wrist fracture, vasectomy, right leg fracture status post open reduction and internal fixation back surgery. ALLERGIES: He is allergic to PENICILLIN, SULFA DRUGS, CINNAMON, CODEINE, EGGS and LATEX. MEDICATIONS: He is currently on following medications: He is on famotidine 20 mg p.o. b.i.d., hydrochlorothiazide 12.5 mg daily, hydrocodone/APAP 5/325 one tablet every 6 hours, metoprolol tartrate 25 mg twice a day, omega-3 fatty acid fish oil 500 mg once a day and ropinirole (Requip) 1 mg daily. REVIEW OF SYSTEMS: The patient denied any blurring of vision, cataract, or glaucoma. Did complain of deafness in his right eye, stuffy nose. Denied any sore throat, sore tongue, toothache, hoarseness of voice or difficulty swallowing. Did complain of nausea, but no vomiting, no diarrhea or constipation. No hematemesis, melena or hematochezia. He denied any dysuria, frequency or hematuria. He did complain of chest pain and shortness of breath. Denied any chills, rigors or fever. PHYSICAL EXAMINATION: GENERAL: On arrival to the Emergency Room, he was resting slightly propped up in bed, in no apparent respiratory distress, pale, but no jaundice, cyanosis, or thyromegaly. No jugular venous distension. No limb edema. VITAL SIGNS: His heart rate was 82, blood pressure 129/67, temperature was 98.2, respiratory rate was 18 and oxygen saturation was 97%. HEAD: Showed normocephalic, atraumatic. NECK: Supple. HEART: Showed normal first and second heart sounds with no gallop, rub or murmur. CHEST: Clear to auscultation. No crepitation or rhonchi. ABDOMEN: Distended, soft, nontender. No guarding or rigidity. No organomegaly. Hernial orifice intact. Bowel sounds normal. NEUROLOGIC: He is awake, alert, responding appropriately. Cranial nerves are intact. EXTREMITIES: She moves extremities without difficulty, ambulates without assistance or assistive devices. LABORATORY DATA: Showed a white cell count of 14,400; hemoglobin 17; hematocrit 49; MCV 93; and platelet count of 330,000 with normal manual differential. His chemistry showed a serum sodium 138, potassium 3.7, chloride 102, bicarbonate 26, anion gap of 10, BUN 9, creatinine 1, estimated GFR was 81 mL per minute. His glucose was 92, calcium was 8.8, magnesium 2.1. Total bilirubin, AST, ALT, alkaline phosphatase were normal. His total protein was 7.3, albumin 3.6. Lipase was 158. His first troponin is less than 0.017. Urine toxicology screen was negative. He has had a chest x-ray, showed that the patient has cardiomediastinal silhouette is within normal limits. There is no focal airspace consolidation or pneumothorax identified. No evidence of pleural effusion. Impression, no radiographic evidence of active airspace disease. IMPRESSION: In summary, this is a 46-year-old male patient who came with left-sided chest pain that is nonexertional, associated with nausea, but no vomiting, no diaphoresis. He has an EKG, which showed that he was in normal sinus rhythm at a rate of [address] segment elevation or depression. Chest x-ray was unremarkable. The patient has multiple other diseases including [place]'s disease, history of coronary artery disease with stent deployment, diabetes mellitus, hypertension, tobacco abuse and dyslipidemia. PLAN: To do 2 more sets of cardiac enzymes. Continue all his medication and consult the Cardiology team of the [facility] for further evaluation and treatment. Apparently, he had a stress test done about a year ago that ended up with a stent deployment. JEANIE DELANEY MD DR: HI/jamie JOB#: [id number] / [id number]
[2017-03-07 20:17] VITALS: BP 146/76
[2017-03-07] MEDS: METOPROLOL TART IMMED RELEASE 25 MG TABLET PO SCH (21:18)
[2017-03-07] MEDS: FAMOTIDINE 20 MG TABLET PO SCH (21:18)
[2017-03-08] VITALS: BP 148/81
[2017-03-08] MEDS: diazePAM 2 MG TABLET PO PRN ×3 (00:13→17:01)
[2017-03-08] MEDS: HYDROcodone/APAP 5/325MG 1 TAB TABLET PO PRN ×3 (01:01→19:11)
[2017-03-08 05:19] VITALS: BP 122/77
[2017-03-08 07:02] LABS: HEMATOCRIT 49.9 % (39.0-53.0); HEMOGLOBIN 17.3 g/dL (13.0-17.5); RED BLOOD COUNT 5.3 x10^6/uL (4.30-5.70); RED CELL DISTRIBUTION WIDTH 14.2 % (11.5-14.5); WHITE BLOOD COUNT 18.5 x10^3/uL (4.0-11.0)
[2017-03-08 07:16] LABS: ALBUMIN 3.6 g/dL (3.4-5.0); ALBUMIN/GLOBULIN RATIO 0.9 (1.0-1.7); CALCIUM 9.4 mg/dL (8.5-10.1); GFR 80.8; POTASSIUM 4.8 mmol/L (3.5-5.1); TOTAL BILIRUBIN 0.2 mg/dL (0.2-1.0); TOTAL PROTEIN 7.8 g/dL (6.4-8.2)
[2017-03-08] MEDS: FAMOTIDINE 20 MG TABLET PO SCH (08:26)
[2017-03-08] MEDS: METOPROLOL TART IMMED RELEASE 25 MG TABLET PO SCH (08:26)
[2017-03-08] MEDS: NICOTINE 14MG PATCH. TD SCH (08:27)
[2017-03-08] MEDS ORDERED: HYDROCORTISONE 20 MG TABLET. PO SCH (09:00)
[2017-03-08] MEDS ORDERED: rOPINIRole 1 MG TABLET. PO SCH (09:00)
[2017-03-08] MEDS ORDERED: hydroCHLOROthiazide 12.5 MG CAPSULE PO SCH (09:00)
[2017-03-08] MEDS ORDERED: OMEGA-3 FATTY ACIDS/FISH OIL 1,000 MG CAPSULE. PO SCH (09:00)
--- NOTE | 2017-03-08 09:00 | PDOC2 ---
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 0900: CONSULT Date of Admission DATE: 03/08/17 TIME: 08:54 Reason for Consult: chest pain Problem List Problems Medical Problems: (1) Acute chest pain Status: Acute (2) Whitley disease Status: Acute (3) Dyslipidemia Status: Acute (4) History of coronary artery disease Status: Acute (5) History of diabetes mellitus Status: Acute (6) History of hypertension Status: Acute (7) Tobacco abuse Status: Acute (8) Tobacco abuse counseling Status: Acute History of Present Illness 46-year-old male patient with history of dyslipidemia, hypertension, diabetes mellitus, smoking, coronary artery disease with stent placement presented to ED via EMS with complaints of chest pain. Pain is described as sudden in onset, non exertional with radiation to neck and left shoulder. He reports associated nausea, dizziness, palpitation, and near syncope. Pain was unchanged with NTG. He reports increased pain if he stretched his neck and shoulders. He reports continued pain currently. He complains of cough and nasal congestion, denies fever or chills. He reports chronic lower extremity edema but currently has none. Past Medical History Cardiovascular: CAD (RCA and LAD stents), HTN, Hyperlipidemia Pulmonary: Asthma, COPD CENTRAL NERVOUS SYSTEM: Periperal neuropathy GI: GERD, Irritable bowel disease Heme/Onc: No pertinent hx Hepatobiliary: No pertinent hx Psych: Anxiety, Bipolar, Depression, Panic, Other (PTSD), recent suicide attempt Musculoskeletal: Osteoarthritis (DJD) Rheumatologic: Fibromyalgia Infectious disease: No pertinent hx ENT: No pertinent hx Renal/: No pertinent hx Endocrine: Diabetes (type II), Whitley's disease Dermatology: No pertinent hx HEART CATH 12/05/2015: FINDINGS 1. Hemodynamics: Normal left ventricular end-diastolic pressure of 14 mmHg. No pullback gradient across the aortic valve. 2. Left ventriculography: Normal left ventricle systolic function with ejection fraction estimated at 60-65%. 3. Coronary angiography: a. The left main coronary artery arose from the left sinus of Valsalva, gave rise to the left anterior descending and left circumflex arteries and did not show any significant stenosis. b. The left anterior descending artery showed 60-70% stenosis within the proximal portion of previously placed stent in the midsegment. This was found to be physiologically significant based on FFR measurement of 0.73. c. The left circumflex artery did not show any significant stenosis. d. The right coronary artery showed 30% stenosis in the midsegment and patent stent in the distal segment. Conclusion 1. 60-70% stenosis of the left anterior descending artery found to be physiologically significant based on FFR measurement of 0.73. The previous to placed stent in the right coronary artery was patent. 2. Successful PCI/drug eluting stents placement to the left anterior descending artery. 3. Normal left ventricle systolic function with ejection fraction estimated at 60-65%. Past Surgical History Appendectomy, Cholecystectomy, Other (bilateral knee surgery; vasectomy; left wrist surgery; repair of laceration of right index finger - 03/2016) Family History Hypertension Social History Smoke: 1 pack per day ALCOHOL: none Drugs: Marijuana (use 1 - 2 X/month) with current negative UDS Current Medications Current Medications Morphine Sulfate (Morphine 2mg Syringe) 2 mg 1X ONCE IV Last administered on 11:26; Start 03/07/17 at 11:30; Stop 03/07/17 at 11:31; Status DC Methylprednisolone Sodium Succinate (SOLU-Medrol 125MG VIAL) 125 mg 1X ONCE IV Last administered on 03/07/17 11:57; Start 03/07/17 at 12:00; Stop 03/07/17 at 12:01; Status DC Hydrocortisone Sodium Succinate (Solu-CORTEF) 100 mg 1X ONCE IV Last administered on 03/07/17 11:57; Start 03/07/17 at 12:00; Stop 03/07/17 at 12:01; Status DC Nitroglycerin (Nitrostat) 0.4 mg 1X ONCE SL Last administered on 03/07/17at 13: 51; Start 03/07/17 at 13:45; Stop 03/07/17 at 13:46; Status DC Famotidine (Pepcid) 20 mg BID PO Last administered on 03/08/17 08:26; Start 03/07/17 at 21:00 Hydrochlorothiazide (Microzide) 12.5 mg DAILY PO Last administered on 03/08/17 08:27; Start 03/08/17 at 09:00 Acetaminophen/ Hydrocodone Bitart (Lortab 5/325) 1 tab PRN Q6HRS PRN PO PAIN Last administered on 03/08/17 08:27; Start 03/07/17 at 17:00 Metoprolol Tartrate (Lopressor) 25 mg BID PO Last administered on 03/08/17 08: 26; Start 03/07/17 at 21:00 Ropinirole HCl (Requip) 1 mg DAILY PO Last administered on 03/08/17 08:27; Start 03/08/17 at 09:00 Fish Oil (Fish Oil) 1,000 mg DAILY PO Last administered on 03/08/17 08:27; Start 03/08/17 at 09:00 Hydrocortisone (Cortef) 20 mg DAILY PO Last administered on 03/08/17 08:27; Start 03/08/17 at 09:00 Hydrocortisone (Cortef) 10 mg DAILY16 PO ; Start 03/08/17 at 16:00 Nicotine (Nicoderm Cq 14mg) 1 patch DAILY TD Last administered on 03/08/17 08: 27; Start 03/07/17 at 17:00 Diazepam (Valium) 2 mg PRN TID PRN PO ANXIETY Last administered on 03/08/17 08: 26; Start 03/07/17 at 17:45 Active Scripts Active Pepcid (Famotidine) 20 Mg Tablet 1 Tab PO BID Hydrocodone-Apap 5-325 (Hydrocodone Bit/Acetaminophen) 1 Each Tablet 1 Tab PO PRN Q6HRS PRN Metoprolol Tartrate 25 Mg Tablet 25 Mg PO BID 30 Days Reported Hydrochlorothiazide Capsule (Hydrochlorothiazide) 12.5 Mg Capsule 12.5 Mg PO DAILY Requip (Ropinirole Hcl) 1 Mg Tablet 1 Mg PO DAILY Fish Oil (Dillon-3 Fatty Acids) 500 Mg Capsule 500 Mg PO DAILY Allergies: Coded Allergies: cinnamon (Verified Allergy, Severe, Anaphylaxis, 02/02/17) egg (Unverified Allergy, Severe, Anaphylaxis, 02/02/17) latex (Verified Allergy, Severe, Anaphylaxis, 02/02/17) Penicillins (Unverified Adverse Reaction, Severe, Nausea and Vomiting, 02/02/17) Sulfa (Sulfonamide Antibiotics) (Verified Adverse Reaction, Severe, migraines, 02/02/17) codeine (Unverified Adverse Reaction, Severe, hyperactive, 02/02/17) Review of System as per HPI General: Alert, Oriented X3, Cooperative, No acute distress HEENT: Atraumatic, EOMI, Mucous membr. moist/pink Lungs: Clear to auscultation, Normal air movement Heart: Regular rate, Normal S1, Normal S2, Other (no gallops, clicks or rubs) Abdomen: Normal bowel sounds, Soft, No tenderness Extremities: No cyanosis, No edema, Normal pulses Neuro: Normal speech, Strength at 5/5 X4 ext Psych/Mental Status: Mental status NL, Mood NL VITALS Vital Signs Date Time Temp Pulse Resp B/P (MAP) Pulse Ox O2 Delivery O2 Flow Rate FiO2 03/08/17 08:27 96 Room Air 03/08/17 08:26 80 122/77 03/08/17 05:19 97.7 18 2.0 Labs Laboratory Tests Test 03/07/17 11:22 03/07/17 11:35 03/07/17 17:13 03/07/17 18:00 White Blood Count 14.4 x10^3/uL (4.0-11.0) Red Blood Count 5.26 x10^6/uL (4.30-5.70) Hemoglobin 17.1 g/dL (13.0-17.5) Hematocrit 48.9 % (39.0-53.0) Mean Corpuscular Volume 93 fL (79-100) Mean Corpuscular Hemoglobin 32 pg (25-35) Mean Corpuscular Hemoglobin Concent 35 g/dL (31-37) Red Cell Distribution Width 14.2 % (11.5-14.5) Platelet Count 330 x10^3/uL (140-400) Neutrophils (%) (Auto) 69 % (31-73) Lymphocytes (%) (Auto) 23 % (24-48) Monocytes (%) (Auto) 6 % (0-9) Eosinophils (%) (Auto) 1 % (0-3) Basophils (%) (Auto) 1 % (0-3) Neutrophils # (Auto) 9.9 x10^3uL (1.8-7.7) Lymphocytes # (Auto) 3.3 x10^3/uL (1.0-4.8) Monocytes # (Auto) 0.9 x10^3/uL (0.0-1.1) Eosinophils # (Auto) 0.1 x10^3/uL (0.0-0.7) Basophils # (Auto) 0.1 x10^3/uL (0.0-0.2) Prothrombin Time 10.9 SEC (9.4-11.4) Prothromb Time International Ratio 1.1 (0.9-1.1) Sodium Level 138 mmol/L (136-145) Potassium Level 3.7 mmol/L (3.5-5.1) Chloride Level 102 mmol/L (98-107) Carbon Dioxide Level 26 mmol/L (21-32) Anion Gap 10 (6-14) Blood Urea Nitrogen 9 mg/dL (8-26) Creatinine 1.0 mg/dL (0.7-1.3) Estimated GFR (Cockcroft-Gault) 80.8 BUN/Creatinine Ratio 9 (6-20) Glucose Level 92 mg/dL (70-99) Calcium Level 8.8 mg/dL (8.5-10.1) Magnesium Level 2.1 mg/dL (1.8-2.4) Total Bilirubin 0.3 mg/dL (0.2-1.0) Aspartate Amino Transf (AST/SGOT) 19 U/L (15-37) Alanine Aminotransferase (ALT/SGPT) 35 U/L (16-63) Alkaline Phosphatase 103 U/L (46-116) Creatine Kinase 145 U/L (39-308) Creatine Kinase MB (Mass) 0.5 ng/mL (0.0-3.6) Creatine Kinase MB Relative Index 0.3 % (0-4) Troponin I Quantitative < 0.017 ng/mL (0-0.055) < 0.017 ng/mL (0-0.055) YQ-Apu-M-Type Natriuretic Peptide 15 pg/mL (0-124) Total Protein 7.3 g/dL (6.4-8.2) Albumin 3.6 g/dL (3.4-5.0) Albumin/Globulin Ratio 1.0 (1.0-1.7) Lipase 158 U/L (73-393) Urine Opiates Screen Neg (NEG) Urine Methadone Screen Neg (NEG) Urine Barbiturates Neg (NEG) Urine Phencyclidine Screen Neg (NEG) Urine Amphetamine/Methamphetamine Neg (NEG) Urine Benzodiazepines Screen Neg (NEG) Urine Cocaine Screen Neg (NEG) Urine Cannabinoids Screen Neg (NEG) Urine Ethyl Alcohol Neg (NEG) Glucose (Fingerstick) 228 mg/dL (70-99) Test 03/07/17 20:17 03/08/17 00:30 03/08/17 06:40 03/08/17 07:06 Glucose (Fingerstick) 327 mg/dL (70-99) 139 mg/dL (70-99) Troponin I Quantitative < 0.017 ng/mL (0-0.055) White Blood Count 18.5 x10^3/uL (4.0-11.0) Red Blood Count 5.30 x10^6/uL (4.30-5.70) Hemoglobin 17.3 g/dL (13.0-17.5) Hematocrit 49.9 % (39.0-53.0) Mean Corpuscular Volume 94 fL (79-100) Mean Corpuscular Hemoglobin 33 pg (25-35) Mean Corpuscular Hemoglobin Concent 35 g/dL (31-37) Red Cell Distribution Width 14.2 % (11.5-14.5) Platelet Count 352 x10^3/uL (140-400) Sodium Level 138 mmol/L (136-145) Potassium Level 4.8 mmol/L (3.5-5.1) Chloride Level 103 mmol/L (98-107) Carbon Dioxide Level 24 mmol/L (21-32) Anion Gap 11 (6-14) Blood Urea Nitrogen 9 mg/dL (8-26) Creatinine 1.0 mg/dL (0.7-1.3) Estimated GFR (Cockcroft-Gault) 80.8 BUN/Creatinine Ratio 9 (6-20) Glucose Level 162 mg/dL (70-99) Calcium Level 9.4 mg/dL (8.5-10.1) Total Bilirubin 0.2 mg/dL (0.2-1.0) Aspartate Amino Transf (AST/SGOT) 17 U/L (15-37) Alanine Aminotransferase (ALT/SGPT) 41 U/L (16-63) Alkaline Phosphatase 111 U/L (46-116) Total Protein 7.8 g/dL (6.4-8.2) Albumin 3.6 g/dL (3.4-5.0) Albumin/Globulin Ratio 0.9 (1.0-1.7) Images EKG - sinus rhythm without acute ischemic changes Assessment/Plan 1. Chest pain - atypical, negative CE x 2 2. CAD with prior PCI/stents, last stent in Dec 2015 3. hypertension 4. hyperlipidemia monitor Anne if remains normal, suggest outpatient MPI. Continue RF modification. Problems: YUDI NÚÑEZ MD 03/08/17 1525: CONSULT Allergies: Coded Allergies: cinnamon (Verified Allergy, Severe, Anaphylaxis, 02/02/17) egg (Unverified Allergy, Severe, Anaphylaxis, 02/02/17) latex (Verified Allergy, Severe, Anaphylaxis, 02/02/17) Penicillins (Unverified Adverse Reaction, Severe, Nausea and Vomiting, 02/02/17) Sulfa (Sulfonamide Antibiotics) (Verified Adverse Reaction, Severe, migraines, 02/02/17) codeine (Unverified Adverse Reaction, Severe, hyperactive, 02/02/17) Assessment/Plan Patient seen and examined 1. Chest pain - atypical, negative CE x 2. Continue medical treatment and increase activity. Will contact patient for follow up and outpt MPI 2. CAD with prior PCI/stents, last stent in Dec 2015. As above. 3. hypertension. Better control. Continue medications. 4. hyperlipidemia. Continue statins. Thank you for allowing us to participate in the care of your patient. 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
[2017-03-08 10:58] VITALS: BP 97/60
[2017-03-08 14:25] VITALS: BP 139/82
[2017-03-08] MEDS ORDERED: HYDROCORTISONE 10 MG TABLET PO SCH (16:00)
--- NOTE | 2017-03-09 01:19 | DS ---
DATE OF DISCHARGE: 03/08/2017 HOSPITAL COURSE: The patient is sitting upright in his bed, eating his lunch comfortably, in no apparent distress. On questioning him, he denied any complaint. He has had no further episode of chest pain. He has had 3 sets of cardiac enzymes that ruled out myocardial infarction. He was evaluated by the Cardiology team and they recommended that the patient can be discharged and their office will arrange for him to have an outpatient MPI. PHYSICAL EXAMINATION: GENERAL: When I saw him this afternoon, he looked well and was clearly in no apparent respiratory distress, pale, but no jaundice, cyanosis, or thyromegaly. No jugular venous distension, no limb edema. VITAL SIGNS: His heart rate was 75, blood pressure 139/82, temperature was 97.8, respiratory rate 20, and oxygen saturation was 98%. HEAD, EYES, EARS, NOSE AND THROAT: Showed normocephalic, atraumatic. NECK: Supple. HEART: Showed normal first and second heart sounds with no gallop, rub or murmur. CHEST: Clear to auscultation. No crepitation or rhonchi. ABDOMEN: Distended, soft, nontender. NEUROLOGIC: He is awake, alert, responding appropriately. All his cranial nerves are intact. EXTREMITIES: He moves extremities without difficulty, ambulates without assistance or assistive devices. LABORATORY DATA: His serum sodium was 138, potassium 4.8, chloride 103, bicarbonate 24, anion gap of 11, BUN 9, creatinine 1, estimated GFR was 81 mL per minute, his glucose 162, calcium was 9.4. Total bilirubin, AST, ALT, alkaline phosphatase were normal. Total protein was 7.8, albumin 3.6. Triglycerides were 128, total cholesterol was 111, LDL was 140, VLDL was 25, HDL cholesterol was 46 and the ratio was 6. White cell count was slightly elevated 18,500, hemoglobin 17.3, hematocrit 49, MCV 94 and platelet count of 352,000. MEDICATIONS: He was discharged home to continue famotidine 20 mg twice a day, hydrochlorothiazide 12.5 mg once a day, hydrocodone/APAP 1 tablet every 6 hours, metoprolol 25 mg twice a day, omega-3 fatty acid 500 mg once a day, ropinirole for Requip 1 mg daily. He wanted to switch it to Sinemet, I gave him prescription for that. FINAL DISCHARGE DIAGNOSES: Atypical chest pain, he has 3 sets of cardiac enzymes that ruled out myocardial infarction. He has obviously multitude of medical problems including Atlantic disease, dyslipidemia, history of coronary artery disease, history of diabetes mellitus, hypertension, tobacco abuse. The Cardiology team will call him to arrange further outpatient nuclear stress test. JEANIE DELANEY MD DR: HI/jamie JOB#: [id number] / [id number]
[2017-03-09] MEDS ORDERED: ASPIRIN 81 MG TAB.CHEW PO SCH (08:00)
== END 2017-03-08 19:00 | disposition home or self-care (01) | DRG 313 ==
LOC: ER 10:45 → 1 SOUTH 13:06 → OBSVTOIN 18:04
PROVIDERS: ADMIT Internal Medicine; ATTEND Internal Medicine
DX: R07.89 Other chest pain (principal); I25.10 Atherosclerotic heart disease of native coronary artery without angina pectoris; E11.42 Type 2 diabetes mellitus with diabetic polyneuropathy; E27.1 Primary adrenocortical insufficiency; E78.00 Pure hypercholesterolemia, unspecified; E78.5 Hyperlipidemia, unspecified; F17.210 Nicotine dependence, cigarettes, uncomplicated; F43.10 Post-traumatic stress disorder, unspecified; G47.33 Obstructive sleep apnea (adult) (pediatric); K58.9 Irritable bowel syndrome, unspecified; F31.9 Bipolar disorder, unspecified; I10 Essential (primary) hypertension; J44.9 Chronic obstructive pulmonary disease, unspecified; F12.90 Cannabis use, unspecified, uncomplicated; F41.9 Anxiety disorder, unspecified; M19.90 Unspecified osteoarthritis, unspecified site; K21.9 Gastro-esophageal reflux disease without esophagitis; M79.7 Fibromyalgia; Z82.49 Family history of ischemic heart disease and other diseases of the circulatory system; I25.2 Old myocardial infarction; Z87.442 Personal history of urinary calculi; Z90.49 Acquired absence of other specified parts of digestive tract; Z95.5 Presence of coronary angioplasty implant and graft; Z88.5 Allergy status to narcotic agent; Z88.0 Allergy status to penicillin; Z88.8 Allergy status to other drugs, medicaments and biological substances; Z91.040 Latex allergy status; Z71.6 Tobacco abuse counseling
CPT/HCPCS: 36415; 71045; 80053; 80061; 80307; 82553; 82947; 83690; 83735; 83880; 84484; 85025; 85027; 85610; 93005; 96374; 96375; G0378; G0379; J2270; J2930; 99285-25; G0479

== ENCOUNTER 2017-03-10 13:52 | Emergency (ER) | payer BC, OTHER ==
[~2017-03-10] VITALS: Ht 172.7 cm; Wt 110.4 kg
[2017-03-10 13:53] VITALS: BP 101/66
--- NOTE | 2017-03-10 15:52 | PHYS DOC ---
General Chief Complaint: DIZZY/LIGHT HEADED Stated Complaint: NUMBNESS IN FEET Time Seen by MD: 15:06 Source: patient, EMS, old records Exam Limitations: no limitations Problems: History of Present Illness Initial Comments Patient is a 46-year-old male discharged from this hospital yesterday from chest pain admission. Patient states he's been feeling well until immediately prior to calling EMS with sudden onset of dizziness and lightheadedness, tingling in his extremities and overwhelming weakness. He denies chest pain or trouble breathing headache or focal neurologic deficits, no nausea vomiting fever chills sweats or myalgias. He says that he checked his blood sugar at home and it read "high" however EMS reports his glucose was in the 70s. Due to high ED volume and the patient did have somewhat of a wait before I got to see him, after resting a bit in the exam room when I saw him he said he was feeling better. I requested the RN checked his glucose and it was low, approximately lunch was ordered. Timing/Duration: 1/2 hour Severity: severe Modifying Factors: improves with other Associated Symptoms: other Allergies: Coded Allergies: cinnamon (Verified Allergy, Severe, Anaphylaxis, 02/02/17) egg (Unverified Allergy, Severe, Anaphylaxis, 02/02/17) latex (Verified Allergy, Severe, Anaphylaxis, 02/02/17) Penicillins (Unverified Adverse Reaction, Severe, Nausea and Vomiting, 02/02/17) Sulfa (Sulfonamide Antibiotics) (Verified Adverse Reaction, Severe, migraines, 02/02/17) codeine (Unverified Adverse Reaction, Severe, hyperactive, 02/02/17) Past Medical History Medical History: arthritis, COPD, heart disease, other (COPD, depression, diabetes, hyperlipidemia, hypertension, kidney stones) Surgical History: appendectomy, cholecystectomy, other Family History Significant Family History: no pertinent family hx Social History Smoker: cigarettes Alcohol: occasionally Drugs: marijuana Review of Systems Constitutional: denies chills, denies diaphoresis, denies fever, malaise Respiratory: denies cough, denies shortness of breath, denies stridor Cardiovascular: denies chest pain, denies palpitations, denies syncope Gastrointestinal: denies abdominal pain, denies nausea, denies vomiting Psychiatric/Neurological: see HPI Physical Exam General Appearance: WD/WN, no apparent distress Ear, Nose, Throat: hearing grossly normal, normal ENT inspection Neck: non-tender, supple Respiratory: normal breath sounds, no respiratory distress Cardiovascular: normal peripheral pulses, regular rate, rhythm Gastrointestinal: non tender, soft Back: no CVA tenderness, no vertebral tenderness 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 He is requesting discharge home. I have asked the nurse to confirm with the POC glucose, we'll discharge home once normal glucose obtained. RN reports glucose in the 90s, he's feeling much better. I discussed signs and symptoms to monitor as well as indications for urgent return to the department. I discussed maintaining consistent 88 diet and medication regimen. I discussed close follow-up with PCP tomorrow he expressed agreement and understanding. Departure Time of Disposition: 15:50 Disposition: 01 HOME, SELF-CARE Diagnosis: hypoglycemia Condition: IMPROVED Patient Instructions: Hypoglycemia (Low Blood Sugar) Additional Instructions: Please review the patient education materials given by ED staff. Keep a blood sugar log, take your glucose before each meal and at bedtime and take this data to next doctor's appointment. Maintain a consistent ADA diet. Follow-up with your doctor in 2-3 days for recheck. Return to ED with new or changing symptoms. JOHN BRIGHT DO Mar 10, 2017 15:52
== END 2017-03-10 16:15 | disposition home or self-care (01) ==
LOC: ER 13:52
DX: E11.649 Type 2 diabetes mellitus with hypoglycemia without coma (principal); E78.5 Hyperlipidemia, unspecified; J44.9 Chronic obstructive pulmonary disease, unspecified; I11.9 Hypertensive heart disease without heart failure; M19.90 Unspecified osteoarthritis, unspecified site; F32.9 Major depressive disorder, single episode, unspecified; F17.210 Nicotine dependence, cigarettes, uncomplicated; F12.10 Cannabis abuse, uncomplicated; Z87.442 Personal history of urinary calculi; Z91.012 Allergy to eggs; Z91.040 Latex allergy status; Z88.0 Allergy status to penicillin; Z88.2 Allergy status to sulfonamides; Z91.018 Allergy to other foods
CPT/HCPCS: 82947; 99284

== ENCOUNTER 2017-03-23 20:21 | Inpatient (IN) | payer SELFPAY ==
[~2017-03-23] VITALS: Ht 172.7 cm; Wt 103.4 kg
[2017-03-23] MEDS ORDERED: IV NORMAL SALINE 1,000ML 1,000 ML IV SCH (20:34)
--- NOTE | 2017-03-23 20:34 | ED.ADGEN ---
Past History Past Medical History: CAD, COPD, Depression, Diabetes, High Cholesterol, Hypertension, Kidney Stones, Other Past Surgical History: Appendectomy, Cholecystectomy Smoking: Non-smoker Alcohol Use: Occasionally Drug Use: Marijuana Adult General Chief Complaint Chief Complaint " .. I got onset of chest.. about 7... it not gone away..." HPI HPI Patient is a 46 year old male who presents with central chest pain rated 7/10 and constant since 1900 hrs. Pt. has known coronary artery disease with placement of 4 stents in October 2015. Patient follows with Dr. Arevalo and Dr. Block - cardiology. Patient has medical history of, hypertension, tobacco abuse, Bond's disease, hyper cholesterol, Review of Systems Review of Systems Constitutional: Denies fever or chills [] Eyes: Denies change in visual acuity, redness, or eye pain [] HENT: Denies nasal congestion or sore throat [] Respiratory: Denies cough or shortness of breath [] Cardiovascular: No additional information not addressed in HPI [] GI: Denies abdominal pain, nausea, vomiting, bloody stools or diarrhea [] : Denies dysuria or hematuria [] Musculoskeletal: Denies back pain or joint pain [] Integument: Denies rash or skin lesions [] Neurologic: Denies headache, focal weakness or sensory changes [] Endocrine: Denies polyuria or polydipsia [] All other systems were reviewed and found to be within normal limits, except as documented in this note. Family History Family History Diabetes, coronary artery disease Current Medications Current Medications Current Medications Medications (Trade) Dose Ordered Sig/Miguel A Start Time Stop Time Status Last Admin Dose Admin Albuterol Sulfate (Ventolin) 2.5 mg PRN QID PRN 03/23/17 22:00 Albuterol/ Ipratropium (Duoneb) 3 ml 1X ONCE 03/23/17 22:00 03/23/17 22:01 DC Aspirin (Children'S Aspirin) 81 mg DAILY 03/24/17 09:00 Enoxaparin Sodium (Lovenox 100mg Syringe) 100 mg 1X ONCE 03/23/17 20:45 03/23/17 20:47 DC 03/23/17 20:52 100 MG Enoxaparin Sodium (Lovenox 120mg Syringe) 110 mg BID 03/24/17 09:00 Morphine Sulfate (Morphine 10mg Syringe) 10 mg 1X ONCE 03/23/17 22:00 03/23/17 22:01 DC 03/23/17 21:56 10 MG Morphine Sulfate (Morphine 4mg Syringe) 4 mg PRN Q2HR PRN 03/23/17 22:00 03/24/17 21:59 Nitroglycerin (Nitro-Bid Oint) 0.5 inch TID 03/24/17 09:00 Ondansetron HCl (Zofran) 4 mg PRN Q4HRS PRN 03/23/17 22:00 03/24/17 21:59 Sodium Chloride 1,000 ml @ 100 mls/hr Q10H 03/24/17 00:00 See nursing for home medications Allergies Allergies Allergies Coded Allergies Type Severity Reaction Last Updated Verified cinnamon Allergy Severe Anaphylaxis 02/02/17 Yes egg Allergy Severe Anaphylaxis 02/02/17 No latex Allergy Severe Anaphylaxis 02/02/17 Yes Penicillins Adverse Reaction Severe Nausea and Vomiting 02/02/17 No Sulfa (Sulfonamide Antibiotics) Adverse Reaction Severe migraines 02/02/17 Yes codeine Adverse Reaction Severe hyperactive 02/02/17 No Physical Exam Physical Exam Constitutional: Moderately acute distress, non-toxic appearance. [] HENT: Normocephalic, atraumatic, bilateral external ears normal, oropharynx moist, no oral exudates, nose normal. [] Eyes: PERRLA, EOMI, conjunctiva normal, no discharge. [] Neck: Normal range of motion, no tenderness, supple, no stridor. [] Cardiovascular: Tachycardia Heart rate regular rhythm, no murmur [] Lungs & Thorax: Bilateral breath sounds equal apexes scattered wheezes auscultation [] Abdomen: Bowel sounds normal, soft, no tenderness, no masses, no pulsatile masses. Right lower abdomen and appendix scar. Obese. Skin: Warm, dry, no erythema, no rash. [] Back: No tenderness, no CVA tenderness. Extremities: No tenderness, no cyanosis, no clubbing, ROM intact, no edema. [] No cording Neurologic: Alert and oriented X 3, normal motor function, normal sensory function, no focal deficits noted. [] Psychologic: Affect anxious, judgement normal, mood normal. [] Current Patient Data Vital Signs Vital Signs Date Time Temp Pulse Resp B/P (MAP) Pulse Ox O2 Delivery O2 Flow Rate FiO2 03/23/17 21:56 18 03/23/17 21:29 88 124/71 (88) 95 Room Air 03/23/17 20:25 98.4 Lab Results Laboratory Tests Test 03/23/17 20:30 White Blood Count 14.8 x10^3/uL (4.0-11.0) H Red Blood Count 4.91 x10^6/uL (4.30-5.70) Hemoglobin 16.0 g/dL (13.0-17.5) Hematocrit 46.4 % (39.0-53.0) Mean Corpuscular Volume 95 fL (79-100) Mean Corpuscular Hemoglobin 33 pg (25-35) Mean Corpuscular Hemoglobin Concent 34 g/dL (31-37) Red Cell Distribution Width 14.6 % (11.5-14.5) H Platelet Count 352 x10^3/uL (140-400) Neutrophils (%) (Auto) 60 % (31-73) Lymphocytes (%) (Auto) 32 % (24-48) Monocytes (%) (Auto) 5 % (0-9) Eosinophils (%) (Auto) 1 % (0-3) Basophils (%) (Auto) 1 % (0-3) Neutrophils # (Auto) 8.9 x10^3uL (1.8-7.7) H Lymphocytes # (Auto) 4.7 x10^3/uL (1.0-4.8) Monocytes # (Auto) 0.8 x10^3/uL (0.0-1.1) Eosinophils # (Auto) 0.2 x10^3/uL (0.0-0.7) Basophils # (Auto) 0.2 x10^3/uL (0.0-0.2) Prothrombin Time 10.0 SEC (9.4-11.4) Prothrombin Time INR 1.0 (0.9-1.1) PTT 24 SEC (23-33) D-Dimer (Lisa) < 0.19 mg/L (0.00-0.50) Urine Collection Type Unknown Urine Color Yellow Urine Clarity Clear Urine pH 6.0 Urine Specific Strong 1.020 Urine Protein Neg (NEG-TRACE) Urine Glucose (UA) Neg mg/dL (NEG) Urine Ketones (Stick) Neg mg/dL (NEG) Urine Blood Neg (NEG) Urine Nitrite Neg (NEG) Urine Bilirubin Neg (NEG) Urine Urobilinogen Dipstick 0.2 mg/dL (0.2 mg/dL) Urine Leukocyte Esterase Neg (NEG) Urine RBC 0 /HPF (0-2) Urine WBC Occ /HPF (0-4) Urine Squamous Epithelial Cells Occ /LPF Urine Bacteria 0 /HPF (0-FEW) Sodium Level 138 mmol/L (136-145) Potassium Level 3.5 mmol/L (3.5-5.1) Chloride Level 102 mmol/L (98-107) Carbon Dioxide Level 26 mmol/L (21-32) Anion Gap 10 (6-14) Blood Urea Nitrogen 11 mg/dL (8-26) Creatinine 1.0 mg/dL (0.7-1.3) Estimated GFR (Cockcroft-Gault) 80.8 Glucose Level 98 mg/dL (70-99) Calcium Level 8.4 mg/dL (8.5-10.1) L Magnesium Level 2.1 mg/dL (1.8-2.4) Total Bilirubin 0.2 mg/dL (0.2-1.0) Direct Bilirubin 0.1 mg/dL (0.0-0.2) Aspartate Amino Transferase (AST) 19 U/L (15-37) Alanine Aminotransferase (ALT) 32 U/L (16-63) Alkaline Phosphatase 102 U/L (46-116) Creatine Kinase 110 U/L (39-308) Creatine Kinase MB (Mass) < 0.5 ng/mL (0.0-3.6) Creatine Kinase MB Relative Index 0.5 % (0-4) Troponin I Quantitative < 0.017 ng/mL (0-0.055) FN-Prs-Y-Type Natriuretic Peptide 26 pg/mL (0-124) Total Protein 6.9 g/dL (6.4-8.2) Albumin 3.4 g/dL (3.4-5.0) Lipase 187 U/L (73-393) Urine Opiates Screen Neg (NEG) Urine Methadone Screen Neg (NEG) Urine Barbiturates Neg (NEG) Urine Phencyclidine Screen Neg (NEG) Urine Amphetamine/Methamphetamine Neg (NEG) Urine Benzodiazepines Screen Pos (NEG) Urine Cocaine Screen Neg (NEG) Urine Cannabinoids Screen Neg (NEG) Urine Ethyl Alcohol Neg (NEG) EKG EKG My interpretation of EKG shows a sinus rhythm at 94 bpm. There is some nonspecific anterior septal changes but no findings acute STEMI of contralateral changes.[] Radiology/Procedures Radiology/Procedures My interpretation of chest x-ray shows[]no acute cardiopulmonary findings. Similar to prior. Course & Med Decision Making Course & Med Decision Making Pertinent Labs and Imaging studies reviewed. (See chart for details) Pt. 2230 reports relief of Chest pain, but complaints of headache from nitro paste. Discussed presentation, testing and tx plan with Dr. Bean- will admit for further eval. serial enzymes and cardiology consult. [] Final Impression Final Impression 1. Chest pain 2. History coronary artery disease-stents 4 3. Hypertension 4. Diabetes 5. History of Adal's disease 6. Tobacco abuse 7. Hx. of COPD Problems: Dragon Disclaimer Dragon Disclaimer This electronic medical record was generated, in whole or in part, using a voice recognition dictation system. MARZENA BRUSH MD Mar 23, 2017 20:34
[2017-03-23] MEDS ORDERED: NITROGLYCERIN OINT 1 GM PACKET. TP ONE (20:45)
[2017-03-23] MEDS ORDERED: ENOXAPARIN ** NOTE DOSE ** SYRINGE SQ ONE (20:45)
[2017-03-23 21:08] LABS: BARBITURATES NEG (NEG); BENZODIAZEPINES POS (NEG); CANNABINOIDS NEG (NEG); COCAINE NEG (NEG); METHADONE NEG (NEG); OPIATES NEG (NEG); PHENCYCLIDINE NEG (NEG)
[2017-03-23 21:09] LABS: AMPHETAMINE/METHAMPHETAMINE NEG (NEG)
[2017-03-23 21:14] LABS: BACTERIA,URINE 0 /HPF (0-FEW); BILIRUBIN,URINE NEG (NEG); CLARITY,URINE CLEAR; COLOR,URINE YELLOW; GLUCOSE,URINE NEG (NEG); NITRITE,URINE NEG (NEG); RBC,URINE 0 /HPF (0-2); SQUAMOUS EPITHELIAL CELL,UR OCC /LPF; UROBILINOGEN,URINE 0.2 mg/dL (0.2 mg/dL); WBC,URINE OCC /HPF (0-4)
[2017-03-23 21:26] LABS: BASO # 0.2 x10^3/uL (0.0-0.2); BASO % 1 % (0-3); EOS # 0.2 x10^3/uL (0.0-0.7); EOS % 1 % (0-3); HEMATOCRIT 46.4 % (39.0-53.0); LYMPH # 4.7 x10^3/uL (1.0-4.8); LYMPH % 32 % (24-48); MEAN CORPUSCULAR HEMOGLOBIN 33 pg (25-35); MEAN CORPUSCULAR HGB CONC 34 g/dL (31-37); MEAN CORPUSCULAR VOLUME 95 fL (79-100); MONO # 0.8 x10^3/uL (0.0-1.1); MONO % 5 % (0-9); NEUT # 8.9 x10^3uL (1.8-7.7); NEUT % 60 % (31-73); PLATELET COUNT 352 x10^3/uL (140-400); RED BLOOD COUNT 4.91 x10^6/uL (4.30-5.70); RED CELL DISTRIBUTION WIDTH 14.6 % (11.5-14.5); WHITE BLOOD COUNT 14.8 x10^3/uL (4.0-11.0)
--- NOTE | 2017-03-23 21:29 | EKG ---
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
[2017-03-23 21:32] LABS: ALBUMIN 3.4 g/dL (3.4-5.0); ALK PHOS 102 U/L (46-116); ALT (SGPT) 32 U/L (16-63); ANION GAP 10 (6-14); AST (SGOT) 19 U/L (15-37); BLOOD UREA NITROGEN 11 mg/dL (8-26); CALCIUM 8.4 mg/dL (8.5-10.1); CARBON DIOXIDE 26 mmol/L (21-32); CHLORIDE 102 mmol/L (98-107); CREATINE KINASE 110 U/L (39-308); DIRECT BILIRUBIN 0.1 mg/dL (0.0-0.2); GFR 80.8; GLUCOSE 98 mg/dL (70-99); LIPASE 187 U/L (73-393); MAGNESIUM 2.1 mg/dL (1.8-2.4); POTASSIUM 3.5 mmol/L (3.5-5.1); SODIUM 138 mmol/L (136-145); TOTAL BILIRUBIN 0.2 mg/dL (0.2-1.0); TOTAL PROTEIN 6.9 g/dL (6.4-8.2)
[2017-03-23] MEDS ORDERED: IPRATRPIUM/ALBUTEROL 0.5/2.5MG 3 ML NEBU. NEB ONE (22:00)
[2017-03-23] MEDS ORDERED: ONDANSETRON PF 4 MG/2 ML VIAL. IV PRN (22:00)
[2017-03-23] MEDS ORDERED: MORPHINE SULFATE 10 MG/ML SYRINGE. SQ ONE (22:00)
[2017-03-23] MEDS ORDERED: ALBUTEROL SULFATE 2.5 MG/3 ML NEBU. NEB PRN (22:00)
[2017-03-23 23:18] VITALS: BP 120/79
[2017-03-23] MEDS: IV NORMAL SALINE 1,000ML 1,000 ML IV SCH (23:46)
[2017-03-23] MEDS ORDERED: GLYB5TAB3 PO (23:47)
[2017-03-23] MEDS ORDERED: HYDR-3074 PO (23:47)
[2017-03-24] MEDS ORDERED: DIAZ10TA4 PO (00:33)
[2017-03-24] MEDS ORDERED: TEST200V3 IM (00:33)
[2017-03-24] MEDS ORDERED: FLUO20CA8 PO (00:33)
[2017-03-24] MEDS ORDERED: RANI150T2 PO (00:33)
[2017-03-24] MEDS ORDERED: NITR0.4T SL (00:33)
[2017-03-24] MEDS ORDERED: DOCU-109 PO (00:33)
[2017-03-24] MEDS ORDERED: ONDA4TAB10 PO (00:33)
[2017-03-24] MEDS ORDERED: FURO20TA3 PO (00:33)
[2017-03-24] MEDS ORDERED: CALCIUM CARBONATE 500 MG TAB.CHEW PO PRN (00:45)
[2017-03-24] MEDS: MORPHINE SULFATE 4 MG/ML DISP.SYRIN. IV PRN ×2 (00:52→08:04)
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
[2017-03-24 06:02] VITALS: BP 97/63
[2017-03-24 07:39] LABS: BASO % 1 % (0-3); EOS # 0.2 x10^3/uL (0.0-0.7); EOS % 2 % (0-3); HEMATOCRIT 46.5 % (39.0-53.0); HEMOGLOBIN 15.8 g/dL (13.0-17.5); LYMPH # 2.9 x10^3/uL (1.0-4.8); LYMPH % 34 % (24-48); MEAN CORPUSCULAR HEMOGLOBIN 33 pg (25-35); MEAN CORPUSCULAR HGB CONC 34 g/dL (31-37); MEAN CORPUSCULAR VOLUME 96 fL (79-100); MONO # 0.7 x10^3/uL (0.0-1.1); MONO % 7 % (0-9); NEUT # 4.9 x10^3uL (1.8-7.7); NEUT % 56 % (31-73); PLATELET COUNT 290 x10^3/uL (140-400); RED BLOOD COUNT 4.86 x10^6/uL (4.30-5.70); RED CELL DISTRIBUTION WIDTH 14.6 % (11.5-14.5); WHITE BLOOD COUNT 8.8 x10^3/uL (4.0-11.0)
[2017-03-24 07:47] LABS: CALCIUM 8.5 mg/dL (8.5-10.1); GFR 80.8; POTASSIUM 3.7 mmol/L (3.5-5.1)
--- NOTE | 2017-03-24 07:54 | RAD ---
EXAM: Chest, 2 views. HISTORY: Chest pain. COMPARISON: 03/07/2017. FINDINGS: Frontal and lateral views of the chest are obtained. There is no infiltrate, effusion or pneumothorax. The heart is normal in size.. IMPRESSION: No acute pulmonary finding.
[2017-03-24] MEDS ORDERED: ONDANSETRON ODT 4 MG TAB.RAPDIS PO PRN (08:15)
[2017-03-24] MEDS ORDERED: NITROGLYCERIN SUBLINGUAL 0.4 MG BOTTLE OF 25. SL SCH (08:15)
[2017-03-24] MEDS ORDERED: HYDROcodone/APAP 5/325MG 1 TAB TABLET PO PRN (08:30)
[2017-03-24] MEDS ORDERED: OMEGA-3 FATTY ACIDS/FISH OIL 1,000 MG CAPSULE. PO SCH (09:00)
[2017-03-24] MEDS ORDERED: HYDROCORTISONE 10 MG TABLET PO SCH (09:00)
[2017-03-24] MEDS ORDERED: METOPROLOL TART IMMED RELEASE 25 MG TABLET PO SCH (09:00)
[2017-03-24] MEDS ORDERED: ASPIRIN 81 MG TAB.CHEW PO SCH (09:00)
[2017-03-24] MEDS ORDERED: NITROGLYCERIN OINT 1 GM PACKET. TP SCH (09:00)
[2017-03-24] MEDS ORDERED: ENOXAPARIN ** NOTE DOSE ** SYRINGE SQ SCH (09:00)
[2017-03-24] MEDS ORDERED: hydroCHLOROthiazide 12.5 MG CAPSULE PO SCH (09:00)
[2017-03-24] MEDS ORDERED: FAMOTIDINE 20 MG TABLET PO SCH (09:00)
[2017-03-24] MEDS ORDERED: FUROSEMIDE 20 MG TABLET PO SCH (09:00)
[2017-03-24] MEDS ORDERED: diazePAM 5 MG TABLET PO SCH (09:00)
[2017-03-24] MEDS ORDERED: DOCUSATE SODIUM 100 MG CAPSULE PO SCH (09:00)
[2017-03-24] MEDS ORDERED: FLUoxetine HCL 20 MG CAPSULE PO SCH (09:00)
[2017-03-24] MEDS ORDERED: glyBURIDE 5 MG TABLET PO SCH (09:00)
[2017-03-24 10:59] VITALS: BP 106/71
[2017-03-24] MEDS: IV NORMAL SALINE 1,000ML 1,000 ML IV SCH (11:16)
[2017-03-24 14:51] VITALS: BP 147/76
--- NOTE | 2017-03-24 15:49 | NUR ---
Discharge to home via ambulation accompanied by staff. Alert and oriented, no c/o chest pain, vs stable. Sl dc'ed per Eleuterio quinones, tolerated procedure well. Discharge plan given and explained to pt. Verbalized understanding. Dr. Quiñonez called re discharge per Dr. Bean. Dr. Quiñonez's office will call pt tomorrow for follow up stress test tomorrow.
--- NOTE | 2017-03-24 15:58 | SSS ---
ADMIT DATE: 03/24/2017 HISTORY OF PRESENT ILLNESS: The patient a 46-year-old male patient who came to the Emergency Room complaining of central chest pain rated about 7/10, constant since around 7 o'clock in the evening. He is known to have coronary artery disease with placement of 4 stents in October 2015. He follows with Dr. Arevalo and Dr. Block. He has multiple medical problems and therefore, the patient was admitted to rule out myocardial infarction. He did have 3 sets of cardiac enzymes, all of them showed troponin to be less than 0.017. The EKG showed that he was in sinus rhythm at 94 beats per minute. There are some nonspecific anteroseptal changes, but no finding, consistent with acute STEMI of the contralateral changes. The patient was admitted here on 03/07/2017 and was discharged on 03/09/2017 and was supposed to have a nuclear stress test done as an outpatient, but has never received any call. We spoke with Dr. Keron Wilson, who agreed to let him go home and he would be called for an outpatient stress test in their office. PHYSICAL EXAMINATION: GENERAL: When I saw him this afternoon, he was sitting in the edge of the bed comfortably in no apparent respiratory distress. He was slightly pale, but no jaundice, cyanosis, or thyromegaly. No jugular venous distension. No lower limb edema. VITAL SIGNS: His heart rate was 68, blood pressure 147/76, temperature was 98, respiratory rate was 20, and oxygen saturation was 97%. HEAD, EYES, EARS, NOSE AND THROAT: Showed he is normocephalic, atraumatic. NECK: Supple. HEART: Showed normal first and second sounds. No gallop, rub or murmur. CHEST: Clear to auscultation. No crepitation or rhonchi. ABDOMEN: Distended, soft, nontender. NEUROLOGIC: He is awake, alert, responding appropriately. Cranial nerves intact. EXTREMITIES: He moves extremities without difficulty, ambulates without assistance or assistive devices. LABORATORY DATA: Showed white cell count of 8800, hemoglobin 15, hematocrit 46, MCV 96, and platelet count of 290,000. His chemistry showed serum sodium 141, potassium 3.7, chloride 106, bicarbonate 30, anion gap of 5, BUN 9, creatinine 1, estimated GFR was 81 mL per minute. His calcium was 8.5. His prothrombin time was 10, INR of 1, aPTT 24 and D-dimer was less than 0.19. Urinalysis showed the urine was yellow, clear with a pH of 6, specific gravity 1.020. The toxic screen was negative. INCOMPLETE DICTATION JEANIE DELANEY MD DR: HI/jamie JOB#: [id number] / [id number]
== END 2017-03-24 15:49 | disposition home or self-care (01) | DRG 303 ==
LOC: ER 20:21 → 1 SOUTH 22:30
PROVIDERS: ADMIT Internal Medicine; ATTEND Internal Medicine
DX: I25.10 Atherosclerotic heart disease of native coronary artery without angina pectoris (principal); E27.1 Primary adrenocortical insufficiency; E11.9 Type 2 diabetes mellitus without complications; F32.9 Major depressive disorder, single episode, unspecified; F12.90 Cannabis use, unspecified, uncomplicated; F17.210 Nicotine dependence, cigarettes, uncomplicated; I10 Essential (primary) hypertension; J44.9 Chronic obstructive pulmonary disease, unspecified; Z95.5 Presence of coronary angioplasty implant and graft; Z87.442 Personal history of urinary calculi; Z90.49 Acquired absence of other specified parts of digestive tract
CPT/HCPCS: 36415; 71046; 80048; 80076; 80307; 81001; 82553; 82947; 83690; 83735; 83880; 84443; 84484; 85025; 85379; 85610; 85730; 93005; J1650; J2270; J7620; G0479; J7030

== ENCOUNTER 2017-03-28 18:05 | Emergency (ER) | payer BC, OTHER ==
[~2017-03-28] VITALS: Ht 172.7 cm; Wt 110.4 kg
[~2017-03-28 18:05] MED LIST changes: +DIAZ10TA4 PO; +DOCU-109 PO; +FLUO20CA8 PO; +GLYB5TAB3 PO; +HYDR-3074 PO; +NITR0.4T SL; +ONDA4TAB10 PO; +RANI150T2 PO; +TEST200V3 IM
--- NOTE | 2017-03-28 19:02 | PHYS DOC ---
General Chief Complaint: HEADACHE Stated Complaint: HEADACHE Time Seen by MD: 18:56 Source: patient, old records Exam Limitations: no limitations Problems: History of Present Illness Initial Comments Patient is a 46-year-old male complaining of headache. Patient states that since being discharged March 24 for chest pain evaluation at this facility he's had nausea vomiting and diarrhea consistent with stomach virus. He had sick contacts with similar symptoms denies travel or bad food exposure. The past 2 days he's had decreased by mouth intake and a headache primarily when he is trying to be up and active. Twice I gone in to see him and found him to be sleeping, he says he feels fine when he is lying down by when he gets up he knows his head will start hurting again. It sounds as if he's had a stomach virus and is dehydrated fingerstick glucose was 95. We'll give a liter of normal saline check an i-STAT BMP and give Phenergan Benadryl and Haldol. Patient denies chest pain or shortness of breath repeatedly. PCP is Dr. Arevalo Patient follows with Dr. Block Cardiology Timing/Duration: other Severity: severe Modifying Factors: worse with movement, improves with rest Associated Symptoms: headaches, nausea/vomiting, weakness Allergies: Coded Allergies: cinnamon (Verified Allergy, Severe, Anaphylaxis, 02/02/17) egg (Unverified Allergy, Severe, Anaphylaxis, 02/02/17) latex (Verified Allergy, Severe, Anaphylaxis, 02/02/17) Penicillins (Unverified Adverse Reaction, Severe, Nausea and Vomiting, 02/02/17) Sulfa (Sulfonamide Antibiotics) (Verified Adverse Reaction, Severe, migraines, 02/02/17) codeine (Unverified Adverse Reaction, Severe, hyperactive, 02/02/17) Past Medical History Medical History: arthritis, COPD, heart disease, other (Dyer's disease, depression, diabetes, hyperlipidemia, hypertension, kidney stones) Surgical History: appendectomy, cholecystectomy, other Family History Significant Family History: no pertinent family hx Social History Smoker: cigarettes Alcohol: occasionally Drugs: marijuana Review of Systems Constitutional: denies chills, denies diaphoresis, denies fever, malaise Respiratory: denies cough, denies shortness of breath Cardiovascular: denies chest pain, denies palpitations, denies syncope Gastrointestinal: see HPI Genitourinary: denies dysuria, denies frequency, denies hematuria Musculoskeletal: denies back pain, denies joint swelling, denies neck pain Psychiatric/Neurological: see HPI Physical Exam General Appearance: mild distress Ear, Nose, Throat: hearing grossly normal, normal ENT inspection (very dry membranes), normal pharynx Neck: non-tender, supple Respiratory: normal breath sounds, no respiratory distress Cardiovascular: normal peripheral pulses, regular rate, rhythm Gastrointestinal: normal bowel sounds, non tender, soft Extremities: normal range of motion, non-tender, normal inspection 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 He states that his symptoms have nearly all resolved and is requesting discharge. I discussed signs and symptoms to monitor as well as indications for urgent return to the department. I discussed over-the -counter prescription medications as well as oral hydration and dietary modifications. His questions were answered she expressed agreement and understanding of the treatment plan. Departure Time of Disposition: 21:31 Disposition: 01 HOME, SELF-CARE Diagnosis: symptomatic hypovolemia, gastroenteritis Condition: IMPROVED Patient Instructions: Dehydration, Adult, [id number], Viral Gastroenteritis, [id number] Additional Instructions: Please review the patient education materials given by ED staff. Aggressive hydration with Gatorade or water. Clear liquids today, advance diet slowly tomorrow as tolerated. A Zofran ODT start pack was dispensed to you, take one every 6 hours as needed for nausea. Prescription: Zofran ODT Follow-up with your doctor in 3-5 days for recheck if not better. Return to the ED with new or changing symptoms. JOHN BRIGHT DO Mar 28, 2017 19:02
[2017-03-28] MEDS: HALOPERIDOL LACT 5 MG/ML VIAL. IVP ONE (20:15)
[2017-03-28] MEDS: diphenhydrAMINE 50 MG/ML VIAL IVP ONE (20:15)
[2017-03-28] MEDS: IV NORMAL SALINE 1,000ML 1,000 ML IV SCH (20:40)
[2017-03-28] MEDS ORDERED: IV NORMAL SALINE 50ML 50 ML ONE (21:10)
[2017-03-28] MEDS ORDERED: PROMETHAZINE 25 MG/ML VIAL IV ONE (21:10)
[2017-03-28] MEDS: PROMETHAZINE 12.5 MG in IV NORMAL SALINE 50ML 50 ML IV PRN (21:13)
[2017-03-28 21:25] LABS: HEMOGLOBIN ISTAT 18.4 gm/dL
[2017-03-28] MEDS ORDERED: ONDA4TAB10 PO (21:30)
[2017-03-28] MEDS: ONDANSETRON 4MG ODT 4TABLET STARTPACK. PO ONE (22:00)
[2017-03-28 22:40] VITALS: BP 112/78
== END 2017-03-28 22:46 | disposition home or self-care (01) ==
LOC: ER 18:05
DX: K52.9 Noninfective gastroenteritis and colitis, unspecified (principal); E86.1 Hypovolemia; J44.9 Chronic obstructive pulmonary disease, unspecified; I11.9 Hypertensive heart disease without heart failure; E11.9 Type 2 diabetes mellitus without complications; E78.5 Hyperlipidemia, unspecified; F17.210 Nicotine dependence, cigarettes, uncomplicated; F12.10 Cannabis abuse, uncomplicated; Z87.442 Personal history of urinary calculi; Z91.012 Allergy to eggs; Z91.040 Latex allergy status; Z88.5 Allergy status to narcotic agent; Z88.0 Allergy status to penicillin; Z88.2 Allergy status to sulfonamides; Z91.018 Allergy to other foods
CPT/HCPCS: 80047; 82947; 96361; 96365; 96375; 99284; J1200; J1630; J2550; Q0162; J7030

== ENCOUNTER 2017-06-06 18:53 | Emergency (ER) | payer SELFPAY ==
[~2017-06-06] VITALS: Ht 172.7 cm; Wt 110.4 kg
[~2017-06-06 18:53] MED LIST changes: -TRAM100T PO; +TRAM100T30 PO
[2017-06-06] MEDS ORDERED: IV NORMAL SALINE 1,000ML 1,000 ML IV SCH (19:15)
[2017-06-06] MEDS ORDERED: KETOROLAC 30 MG/ML VIAL. IV ONE (19:30)
[2017-06-06] MEDS ORDERED: CONTRAST GIVEN MC PRN (19:30)
[2017-06-06] MEDS ORDERED: ONDANSETRON PF 4 MG/2 ML VIAL. IV ONE (19:30)
[2017-06-06] MEDS ORDERED: IOHEXOL 300 MG/ML 75 ML VIAL. IV ONE (19:30)
[2017-06-06 20:07] LABS: BASO # 0.1 x10^3/uL (0.0-0.2); BASO % 1 % (0-3); EOS # 0.1 x10^3/uL (0.0-0.7); EOS % 1 % (0-3); HEMATOCRIT 50.7 % (39.0-53.0); HEMOGLOBIN 17.3 g/dL (13.0-17.5); LYMPH # 4.8 x10^3/uL (1.0-4.8); LYMPH % 34 % (24-48); MEAN CORPUSCULAR HEMOGLOBIN 32 pg (25-35); MEAN CORPUSCULAR HGB CONC 34 g/dL (31-37); MEAN CORPUSCULAR VOLUME 93 fL (79-100); MONO # 0.7 x10^3/uL (0.0-1.1); MONO % 5 % (0-9); NEUT # 8.3 x10^3uL (1.8-7.7); NEUT % 59 % (31-73); PLATELET COUNT 296 x10^3/uL (140-400); RED BLOOD COUNT 5.44 x10^6/uL (4.30-5.70); RED CELL DISTRIBUTION WIDTH 12.9 % (11.5-14.5)
--- NOTE | 2017-06-06 20:18 | RAD ---
CT abdomen and pelvis with contrast 06/06/2017 Clinical indication: Upper abdominal pain. COMPARISON: CT abdomen and pelvis 01/04/2017. TECHNIQUE: Multiple CT images of the abdomen and pelvis were obtained following intravenous and ministration of 75 mL Omnipaque 300. *One or more of the following individualized dose reduction techniques were utilized for this examination: 1. Automated exposure control. 2. Adjustment of the mA and/or kV according to patient size. 3. Use of iterative reconstruction technique. FINDINGS: Heart size is normal. Visualized lung bases are clear. Liver, spleen, adrenal glands, pancreas and kidneys are unremarkable. Prior cholecystectomy. No bile duct dilatation. Abdominal aorta is normal caliber with mild aortoiliac calcified atheromatous disease. No retroperitoneal or mesenteric lymphadenopathy. No abdominal free fluid. No pneumoperitoneum. Prior appendectomy. There is mild urinary bladder wall thickening. Prostate and seminal vesicles are unremarkable. No iliac or inguinal lymphadenopathy. No pelvic free fluid. There are no destructive osseous lesions. IMPRESSION: 1. Mild urinary bladder wall thickening, may be due to incomplete distention, though cystitis cannot be excluded. Correlation with urinalysis. 2. No bowel obstruction or abdominal free fluid. Electronically signed by: Raul Ibrahim MD (06/06/2017 8:15 PM) [facility]
[2017-06-06 20:19] LABS: ALBUMIN 3.7 g/dL (3.4-5.0); ALBUMIN/GLOBULIN RATIO 0.9 (1.0-1.7); CALCIUM 9.2 mg/dL (8.5-10.1); GFR 80.8; POTASSIUM 3.7 mmol/L (3.5-5.1); TOTAL BILIRUBIN 0.3 mg/dL (0.2-1.0); TOTAL PROTEIN 7.7 g/dL (6.4-8.2)
[2017-06-06 20:22] LABS: BACTERIA,URINE 0 /HPF (0-FEW); BILIRUBIN,URINE NEG (NEG); CLARITY,URINE CLEAR; COLOR,URINE YELLOW; GLUCOSE,URINE NEG (NEG); NITRITE,URINE NEG (NEG); RBC,URINE 0 /HPF (0-2); UROBILINOGEN,URINE 0.2 mg/dL (0.2 mg/dL); WBC,URINE 0 /HPF (0-4)
[2017-06-06 20:31] VITALS: BP 112/73
[2017-06-06] MEDS ORDERED: ONDA4TAB10 SL (20:52)
--- NOTE | 2017-06-06 20:52 | PHYS DOC ---
Past History Past Medical History: CAD, COPD, Depression, Diabetes, High Cholesterol, Hypertension, Kidney Stones, [place], Other Past Surgical History: Appendectomy, Cholecystectomy Smoking: Non-smoker Alcohol Use: Occasionally Drug Use: Marijuana Adult General Chief Complaint Chief Complaint: ABDOMINAL PAIN HPI HPI 46-year-old male with an extensive medical and psychiatric history including anxiety, PTSD, bipolar with psychotic features, gastroparesis, cholecystectomy and appendectomy. Patient now presents the emergency department complaining of upper abdominal pain typical for him. He reports that he has chronic leukocytosis as well. Denies active vomiting or diarrhea. No fevers chills sweats or shaking chills. Pain is not worse with movement. Review of Systems Review of Systems Constitutional: Denies fever or chills [] Eyes: Denies change in visual acuity, redness, or eye pain [] HENT: Denies nasal congestion or sore throat [] Respiratory: Denies cough or shortness of breath [] Cardiovascular: No additional information not addressed in HPI [] GI: Denies abdominal pain, nausea, vomiting, bloody stools or diarrhea [] : Denies dysuria or hematuria [] Musculoskeletal: Denies back pain or joint pain [] Integument: Denies rash or skin lesions [] Neurologic: Denies headache, focal weakness or sensory changes [] Endocrine: Denies polyuria or polydipsia [] All other systems were reviewed and found to be within normal limits, except as documented in this note. Current Medications Current Medications Current Medications Medications (Trade) Dose Ordered Sig/Miguel A Start Time Stop Time Status Last Admin Dose Admin Info (Do NOT chart on this entry -- for MONITORING) 1 each PRN DAILY PRN 06/06/17 19:30 06/08/17 19:29 Iohexol (Omnipaque 300 Mg/ml) 75 ml 1X ONCE 06/06/17 19:30 06/06/17 19:31 DC 06/06/17 19:51 75 ML Ketorolac Tromethamine (Toradol) 30 mg 1X ONCE 06/06/17 19:30 06/06/17 19:31 DC 06/06/17 20:00 30 MG Ondansetron HCl (Zofran) 4 mg 1X ONCE 06/06/17 19:30 06/06/17 19:31 DC 06/06/17 19:59 4 MG Sodium Chloride 1,000 ml @ 1,000 mls/hr Q1H 06/06/17 19:15 06/06/17 19:59 1,000 MLS/HR Allergies Allergies Allergies Coded Allergies Type Severity Reaction Last Updated Verified cinnamon Allergy Severe Anaphylaxis 02/02/17 Yes egg Allergy Severe Anaphylaxis 02/02/17 No latex Allergy Severe Anaphylaxis 02/02/17 Yes Penicillins Adverse Reaction Severe Nausea and Vomiting 02/02/17 No Sulfa (Sulfonamide Antibiotics) Adverse Reaction Severe migraines 02/02/17 Yes codeine Adverse Reaction Severe hyperactive 02/02/17 No Physical Exam Physical Exam Well-appearing patient no acute distress. Patient is able emulate without difficulty. Constitutional: Well developed, well nourished, no acute distress, non-toxic appearance. [] HENT: Normocephalic, atraumatic, bilateral external ears normal, oropharynx moist, no oral exudates, nose normal. [] Eyes: PERRLA, EOMI, conjunctiva normal, no discharge. [] Neck: Normal range of motion, no tenderness, supple, no stridor. [] Cardiovascular:Heart rate regular rhythm, no murmur [] Lungs & Thorax: Bilateral breath sounds clear to auscultation [] Abdomen: Bowel sounds normal, soft, mild epigastric tenderness without guarding or rebound, no masses, no pulsatile masses. No organomegaly [] Skin: Warm, dry, no erythema, no rash. [] Back: No tenderness, no CVA tenderness. [] Extremities: No tenderness, no cyanosis, no clubbing, ROM intact, no edema. [] Neurologic: Alert and oriented X 3, normal motor function, normal sensory function, no focal deficits noted. [] Psychologic: Affect normal, judgement normal, mood normal. [] Current Patient Data Vital Signs Vital Signs Date Time Temp Pulse Resp B/P (MAP) Pulse Ox O2 Delivery O2 Flow Rate FiO2 06/06/17 18:53 98.4 76 16 97 Room Air Lab Results Laboratory Tests Test 06/06/17 19:48 White Blood Count 14.0 x10^3/uL (4.0-11.0) H Red Blood Count 5.44 x10^6/uL (4.30-5.70) Hemoglobin 17.3 g/dL (13.0-17.5) Hematocrit 50.7 % (39.0-53.0) Mean Corpuscular Volume 93 fL (79-100) Mean Corpuscular Hemoglobin 32 pg (25-35) Mean Corpuscular Hemoglobin Concent 34 g/dL (31-37) Red Cell Distribution Width 12.9 % (11.5-14.5) Platelet Count 296 x10^3/uL (140-400) Neutrophils (%) (Auto) 59 % (31-73) Lymphocytes (%) (Auto) 34 % (24-48) Monocytes (%) (Auto) 5 % (0-9) Eosinophils (%) (Auto) 1 % (0-3) Basophils (%) (Auto) 1 % (0-3) Neutrophils # (Auto) 8.3 x10^3uL (1.8-7.7) H Lymphocytes # (Auto) 4.8 x10^3/uL (1.0-4.8) Monocytes # (Auto) 0.7 x10^3/uL (0.0-1.1) Eosinophils # (Auto) 0.1 x10^3/uL (0.0-0.7) Basophils # (Auto) 0.1 x10^3/uL (0.0-0.2) Urine Collection Type Unknown Urine Color Yellow Urine Clarity Clear Urine pH 6.0 Urine Specific [place] <=1.005 Urine Protein Neg (NEG-TRACE) Urine Glucose (UA) Neg mg/dL (NEG) Urine Ketones (Stick) Neg mg/dL (NEG) Urine Blood Neg (NEG) Urine Nitrite Neg (NEG) Urine Bilirubin Neg (NEG) Urine Urobilinogen Dipstick 0.2 mg/dL (0.2 mg/dL) Urine Leukocyte Esterase Neg (NEG) Urine RBC 0 /HPF (0-2) Urine WBC 0 /HPF (0-4) Urine Squamous Epithelial Cells None /LPF Urine Bacteria 0 /HPF (0-FEW) Sodium Level 138 mmol/L (136-145) Potassium Level 3.7 mmol/L (3.5-5.1) Chloride Level 99 mmol/L (98-107) Carbon Dioxide Level 28 mmol/L (21-32) Anion Gap 11 (6-14) Blood Urea Nitrogen 9 mg/dL (8-26) Creatinine 1.0 mg/dL (0.7-1.3) Estimated GFR (Cockcroft-Gault) 80.8 BUN/Creatinine Ratio 9 (6-20) Glucose Level 82 mg/dL (70-99) Calcium Level 9.2 mg/dL (8.5-10.1) Total Bilirubin 0.3 mg/dL (0.2-1.0) Aspartate Amino Transferase (AST) 23 U/L (15-37) Alanine Aminotransferase (ALT) 47 U/L (16-63) Alkaline Phosphatase 102 U/L (46-116) Total Protein 7.7 g/dL (6.4-8.2) Albumin 3.7 g/dL (3.4-5.0) Albumin/Globulin Ratio 0.9 (1.0-1.7) L Lipase 183 U/L (73-393) EKG EKG [] Radiology/Procedures Radiology/Procedures [] Course & Med Decision Making Course & Med Decision Making Pertinent Labs and Imaging studies reviewed. (See chart for details) Signs and symptoms consistent with suspected exacerbation of patient's chronic epigastric pain. Cardiac history but no clinical evidence of acute coronary syndrome. Pain is easily reproducible laboratory workup is consistent with patient's chronic leukocytosis only and radiographic evaluation with unremarkable CAT scan of the abdomen and pelvis. No further workup or treatment indicated at this time. Patient stable and appears well. He is able emulate without difficulty with no evidence of discomfort. He agrees with outpatient follow-up and strict return precautions given [] Dragon Disclaimer Dragon Disclaimer This electronic medical record was generated, in whole or in part, using a voice recognition dictation system. Departure Departure: Impression: Primary Impression: Abdominal pain Additional Impression: History of leukocytosis Disposition: 01 HOME, SELF-CARE Condition: GOOD Referrals: PCP,OK (PCP) Patient Instructions: Abdominal Pain (Nonspecific), Leukocytosis Additional Instructions: He did not appear to have any threatening cause for your abdominal pain this evening. The CAT scan of your abdomen and pelvis was unremarkable. Your white blood cell count is elevated consistent with your chronic condition of leukocytosis. Rest and drink plenty of fluids. Use Zofran 1 pill under your tongue every 4 hours as needed for nausea. Follow-up with your doctor tomorrow and return immediately for new severe worsening symptoms Scripts Ondansetron (ZOFRAN ODT) 4 Mg Tab.rapdis 1 TAB SL Q4HRS, #15 TAB Prov: CLAUDINE ESQUIVEL MD 06/06/17 Problem Qualifiers CLAUDINE ESQUIVEL MD Jun 06, 2017 20:52
== END 2017-06-06 21:01 | disposition home or self-care (01) ==
LOC: ER 18:53
DX: R10.13 Epigastric pain (principal); F41.9 Anxiety disorder, unspecified; F43.10 Post-traumatic stress disorder, unspecified; F31.9 Bipolar disorder, unspecified; E78.00 Pure hypercholesterolemia, unspecified; J44.9 Chronic obstructive pulmonary disease, unspecified; I25.10 Atherosclerotic heart disease of native coronary artery without angina pectoris; E11.9 Type 2 diabetes mellitus without complications; I10 Essential (primary) hypertension; I25.2 Old myocardial infarction; F12.10 Cannabis abuse, uncomplicated; Z87.442 Personal history of urinary calculi; Z90.49 Acquired absence of other specified parts of digestive tract; Z91.012 Allergy to eggs; Z91.040 Latex allergy status; Z88.5 Allergy status to narcotic agent; Z88.0 Allergy status to penicillin; Z88.2 Allergy status to sulfonamides; Z91.018 Allergy to other foods
CPT/HCPCS: 36415; 74177; 80053; 81001; 83690; 85025; 96361; 96374; 96375; 99285; J1885; J2405; Q9967; J7030

== ENCOUNTER 2017-06-21 18:06 | Emergency (ER) | payer SELFPAY ==
[~2017-06-21] VITALS: Ht 172.7 cm; Wt 99.8 kg
[2017-06-21 18:21] VITALS: BP 109/71
[2017-06-21] MEDS ORDERED: HYDROcodon/IBUPROFEN 7.5/200MG 1 TAB TABLET PO ONE (18:30)
--- NOTE | 2017-06-21 18:50 | ED.ADGEN ---
Past History Past Medical History: CAD, COPD, Depression, Diabetes, High Cholesterol, Hypertension, Kidney Stones, [place], Other Past Surgical History: Appendectomy, Cholecystectomy Smoking: Non-smoker Alcohol Use: Occasionally Drug Use: Marijuana Adult General Chief Complaint Chief Complaint " I was try to kick at my cat Cehl... and I hit the edge bed on my Rt heel... " HPI HPI Patient is a 46 year old male who presents with above hx and complaints of contusion to Rt. Heel when attempting to kick his cat Athlinda. Pt. ambulatory with pain. Pain at distal insertion of a tendon into the calcaneus (Achilles) . Distal neurovascular intact. Can stand on toes. Does complain of pain with walking at site of contusion. Review of Systems Review of Systems Constitutional: Denies fever or chills [] Eyes: Denies change in visual acuity, redness, or eye pain [] HENT: Denies nasal congestion or sore throat [] Respiratory: Denies cough or shortness of breath [] Cardiovascular: No additional information not addressed in HPI [] GI: Denies abdominal pain, nausea, vomiting, bloody stools or diarrhea [] : Denies dysuria or hematuria [] Musculoskeletal: Denies back pain or joint pain. Has contusion right heel Integument: Denies rash or skin lesions [] Neurologic: Denies headache, focal weakness or sensory changes [] Endocrine: Denies polyuria or polydipsia [] All other systems were reviewed and found to be within normal limits, except as documented in this note. Family History Family History Noncontributory Current Medications Current Medications Current Medications Medications (Trade) Dose Ordered Sig/[facility] Start Time Stop Time Status Last Admin Dose Admin Hydrocodone Bitartrate/ Ibuprofen (Vicoprofen 7.5-200) 2 tab 1X ONCE 06/21/17 18:30 06/21/17 18:31 DC 06/21/17 18:35 2 TAB Allergies Allergies Allergies Coded Allergies Type Severity Reaction Last Updated Verified cinnamon Allergy Severe Anaphylaxis 02/02/17 Yes egg Allergy Severe Anaphylaxis 02/02/17 No latex Allergy Severe Anaphylaxis 02/02/17 Yes peppermint Allergy Unknown 06/21/17 Yes Penicillins Adverse Reaction Severe Nausea and Vomiting 02/02/17 No Sulfa (Sulfonamide Antibiotics) Adverse Reaction Severe migraines 02/02/17 Yes codeine Adverse Reaction Severe hyperactive 02/02/17 No Physical Exam Physical Exam Constitutional: moderate distress, non-toxic appearance. [] HENT: Normocephalic, atraumatic, bilateral external ears normal, oropharynx moist, no oral exudates, nose normal. [] Eyes: PERRLA, EOMI, conjunctiva normal, no discharge. [] Neck: Normal range of motion, no tenderness, supple, no stridor. [] Cardiovascular:Heart rate regular rhythm, no murmur [] Lungs & Thorax: Bilateral breath sounds equal apex with scattered wheezes on auscultation [] Abdomen: Bowel sounds normal, soft, no tenderness, no masses, no pulsatile masses. [] Skin: Warm, dry, no erythema, no rash. [] Back: No tenderness, no CVA tenderness. [] Extremities: No tenderness, no cyanosis, no clubbing, ROM intact, no edema. [] Except contusion Rt heel. Distal neurovascular intact. Neurologic: Alert and oriented X 3, normal motor function, normal sensory function, no focal deficits noted. [] Psychologic: Affect normal, judgement normal, mood normal. [] Current Patient Data Vital Signs Vital Signs Date Time Temp Pulse Resp B/P (MAP) Pulse Ox O2 Delivery O2 Flow Rate FiO2 06/21/17 18:21 77 17 100 Room Air EKG EKG [] Radiology/Procedures Radiology/Procedures My interpretation of X-ray Rt heel shows no displacement or fx. [] Course & Med Decision Making Course & Med Decision Making Pertinent Labs and Imaging studies reviewed. (See chart for details). Still Awaiting X-ray results- Radiology not available- Up the hill for procedure: - 1900 hrs. Ice, elevation, rest, and take over the counter tylenol and ibuprofen. Follow up with primary. [] Final Impression Final Impression 1. Contusion- Rt Heel[] Problems: Dragon Disclaimer Dragon Disclaimer This electronic medical record was generated, in whole or in part, using a voice recognition dictation system. MARZENA BRUSH MD Jun 21, 2017 18:49
--- NOTE | 2017-06-22 08:59 | RAD ---
Right foot x-rays 3 views History: Pain at heel of the right foot, history of an old fracture. Findings: Very small enthesophyte of the Achilles tendon insertion at the calcaneus tuberosity. No fracture or dislocation of the foot. No plantar spur of the calcaneus. No periostitis or lytic bone destruction. Impression: No acute osseous injury.
== END 2017-06-21 19:35 | disposition home or self-care (01) ==
LOC: ER 18:06
DX: S90.31XA Contusion of right foot, initial encounter (principal); I25.10 Atherosclerotic heart disease of native coronary artery without angina pectoris; J44.9 Chronic obstructive pulmonary disease, unspecified; F32.9 Major depressive disorder, single episode, unspecified; E11.9 Type 2 diabetes mellitus without complications; E78.00 Pure hypercholesterolemia, unspecified; I10 Essential (primary) hypertension; Z87.442 Personal history of urinary calculi; I25.2 Old myocardial infarction; F12.10 Cannabis abuse, uncomplicated; Z91.012 Allergy to eggs; Z91.040 Latex allergy status; Z88.5 Allergy status to narcotic agent; Z88.0 Allergy status to penicillin; Z88.2 Allergy status to sulfonamides; Z88.8 Allergy status to other drugs, medicaments and biological substances; Z91.018 Allergy to other foods; W22.8XXA Striking against or struck by other objects, initial encounter; Y93.89 Activity, other specified; Y99.8 Other external cause status; Y92.89 Other specified places as the place of occurrence of the external cause
CPT/HCPCS: 73630; 99284